=== PATIENT | male | born 1940 | race Caucasian/White ===

== ENCOUNTER 2017-01-16 15:55 | Emergency (ER) | payer OTHER, BC ==
[~2017-01-16] VITALS: Ht 177.8 cm; Wt 81.1 kg
[~2017-01-16 15:55] MED LIST: CARB25TA7 PO; CHOL2000 PO; DONE10TA12 PO; MULT-506 PO; OXYBPOW PO
[2017-01-16] MEDS ORDERED: SIMV-150 PO (15:57)
[2017-01-16] MEDS ORDERED: LEVO125T4 PO (15:57)
[2017-01-16] MEDS ORDERED: OMEP20CA9 PO (15:57)
[2017-01-16] MEDS ORDERED: MELO15TA4 PO (15:57)
[2017-01-16 15:58] VITALS: TEMP 36.4; Ht 177.8 cm; Wt 81.1 kg
[2017-01-16] MEDS ORDERED: ASPI81TA28 PO (16:00)
[2017-01-16] MEDS ORDERED: LUTE20CA PO (16:04)
[2017-01-16 16:05] VITALS: O2SAT 99
[2017-01-16] MEDS ORDERED: SODIUM CHLORIDE 0.9% 500ML 500 ML IV STA (16:12)
--- NOTE | 2017-01-16 16:12 | EMERGENCY ROOM VISIT NOTE ---
History Report prepared by Umm: Turner Robertson Under the Supervision of: Dr. Bladimir Reece M.D. First contact with patient: 16:05 Chief Complaint: ABDOMINAL PAIN Stated Complaint: ABD PAIN / FR [facility] Nursing Triage Summary: Patient arrives via BLS from [facility] with complaints of abdominal pain. Patient has abdominal hernia and he noticed that it has been popping out more often today. The [facility] admin Zofran a littel after lunch due to 1 episode of emesis. Rates pain 9/10. History of Present Illness The patient is a 76 year old male who presents to the Emergency Room with complaints of persistent improving abdominal pain that started today. The pain was rated 9/10 in severity at its worst. The patient also had an episode of vomiting today. He has an inguinal hernia and notes that it has been coming out more frequently. The patient currently denies chest pain or shortness of breath. He does not normally wear oxygen at home. He was given Zofran prior to arrival at the [facility], wear he resides. Source of History: patient Onset: today Position: abdomen Symptom Intensity: 9/10 Timing: other (improving) Associated Symptoms: + nausea, + vomiting, No SOB, No chest pain Review of Systems See HPI for pertinent positives & negatives. A total of 10 systems reviewed and were otherwise negative. Past Medical & Surgical Medical Problems: (1) Heart disease (2) Hyperlipidemia (3) Kidney stone Surgical Problems: (1) History of knee replacement Family History Heart disease Hypertension Kidney disease Kidney stones Social History Smoking Status: Never Smoker Marital Status: Housing Status: lives with family Occupation Status: retired Current/Historical Medications Scheduled Aspirin (Aspirin Ec), 81 MG PO DAILY Carbidopa-Levodopa (Sinemet 25MG/250MG), 1 TAB PO TID Cholecalciferol (Vitamin D3), 1 CAP PO DAILY Donepezil Hydrochloride (Aricept), 1 TAB PO QAM Levothyroxine Sodium (Levothyroxine Sodium), 125 MCG PO DAILY Lutein (Lutein), 20 MG PO DAILY Multivitamin (Multivitamin), 1 TAB PO DAILY Omeprazole (Prilosec), 20 MG PO BID Oxybutynin Chloride (Oxybutynin Chloride ER), 10 MG PO UD Simvastatin (Simvastatin), 20 MG PO HS Scheduled PRN Meloxicam (Mobic), 15 MG PO DAILY PRN for Joint Pain Allergies Coded Allergies: No Known Allergies (Unverified , 03/15/16) Physical Exam Vital Signs Date Time Temp Pulse Resp B/P Pulse Ox O2 Delivery O2 Flow Rate FiO2 01/16/17 19:07 70 18 106/66 97 Room Air 01/16/17 17:07 70 18 113/67 97 Room Air 01/16/17 16:05 99 Nasal Cannula 2.0 01/16/17 16:04 73 01/16/17 15:58 36.4 70 18 112/66 99 Room Air Physical Exam GENERAL: Patient is demented and in no acute distress. HEENT: No acute trauma, normocephalic atraumatic, mucous membranes moist, no nasal congestion, no scleral icterus. NECK: No stridor, no adenopathy, no meningismus, trachea is midline. LUNGS: No dyspnea. Clear to auscultation and equal bilaterally. No wheeze, no rhonchi. HEART: Regular rate and rhythm. No murmurs, rubs, gallops appreciated. ABDOMEN: Soft, nontender, bowel sounds positive, no peritonitis. There is an easily reducible right inguinal hernia which comes and goes. BACK: No midline tenderness, no CVA tenderness EXTREMITIES: Normal motion all extremities, no cyanosis, no edema. NEUROLOGIC: Alert and oriented, no acute motor or sensory deficits, no focal weakness, cranial nerves grossly intact. SKIN: No rash, no jaundice, no diaphoresis. Medical Decision & Procedures ER Provider Diagnostic Interpretation: Radiology results and stated below per my review and radiologist interpretation: CT SCAN OF THE ABDOMEN AND PELVIS WITH IV CONTRAST CLINICAL HISTORY: Right lower quadrant abdominal pain. COMPARISON STUDY: No priors. TECHNIQUE: Following the IV administration of 93 cc of Optiray 320, CT scan of the abdomen and pelvis is performed from the lung bases to the proximal femora. Images are reviewed in the axial, sagittal, and coronal planes. IV contrast was administered without complication. Automated dose control exposure was utilized. CT DOSE: 560.55 mGy.cm FINDINGS: Lung bases: The heart is enlarged and without pericardial effusion. Pacemaker leads are noted. The lung bases are clear. Liver: The contrast-enhanced liver is normal in size, contour, and attenuation. There is no intrahepatic biliary ductal dilatation. The hepatic veins and portal veins are patent. Gallbladder: Unremarkable. Spleen: The spleen is enlarged, measuring 14 cm in length. Pancreas: The pancreas is atrophic and grossly unremarkable a punctate calcification is noted in the pancreatic head. Adrenal glands: Unremarkable. Kidneys: The contrast enhanced kidneys demonstrate cortical atrophy and are without hydronephrosis. The kidneys enhance symmetrically. There are least 4 nonobstructing right renal calculi measuring up to 6 mm. At least 3 small nonobstructing calculi identified in the left kidney. Foci of cortical scarring are noted in the left. Bilateral renal cysts measure up to 2.3 cm. Additional subcentimeter cortical hypodensities also likely represent cysts but are too small for definitive characterization. Abdominal vasculature: The abdominal aorta is normal in course and caliber noting moderate atherosclerotic calcification. Bowel: There is moderate to severe colonic fecal retention. A loop of nonobstructed small bowel is contained within a right inguinal hernia. No bowel obstruction is identified. The appendix is not clearly identified. Peritoneum: There is no intraperitoneal free air or abdominal ascites. Lymphadenopathy: None. Pelvic viscera: Prostate gland is mildly enlarged and heterogeneous. The bladder wall is thickened and trabeculated suggesting chronic outlet obstruction. There are bilateral inguinal hernias. There is trace fluid and a loop of small bowel within the hernia on the right. Skeletal structures: The skeletal structures are osteopenic. There are bilateral pars defects at L5 with grade 1 anterolisthesis at L5-S1. Moderate lumbosacral spondylosis is observed. No lytic or blastic lesions are seen. IMPRESSION: 1. There are no acute infectious or inflammatory findings in the abdomen or pelvis. 2. Moderate to severe constipation. No bowel obstruction is seen. 3. Trace fluid and a loop of nonobstructed small bowel are contained within a right inguinal hernia. 4. Bilateral nonobstructing renal calculi. 5. Prostatomegaly. 6. Cardiomegaly. 7. Splenomegaly. 8. Additional findings as above. Electronically signed by: Jose Luis Zimmerman M.D. 01/16/2017 6:27 PM Dictated Date/Time: 01/16/2017 6:18 PM Laboratory Results 01/16/17 16:30 Red Blood Count 4.42, Mean Corpuscular Volume 82.6, Mean Corpuscular Hemoglobin 28.5, Mean Corpuscular Hemoglobin Concent 34.5, Mean Platelet Volume 9.2, Neutrophils (%) (Auto) 86.7, Lymphocytes (%) (Auto) 5.2, Monocytes (%) (Auto) 7.0, Eosinophils (%) (Auto) 0.3, Basophils (%) (Auto) 0.2, Neutrophils # (Auto) 8.09, Lymphocytes # (Auto) 0.49, Monocytes # (Auto) 0.65, Eosinophils # (Auto) 0.03, Basophils # (Auto) 0.02 01/16/17 16:30 Test 01/16/17 16:30 01/16/17 16:55 01/16/17 18:06 White Blood Count 9.34 K/uL (4.8-10.8) Red Blood Count 4.42 M/uL (4.7-6.1) Hemoglobin 12.6 g/dL (14.0-18.0) Hematocrit 36.5 % (42-52) Mean Corpuscular Volume 82.6 fL (80-100) Mean Corpuscular Hemoglobin 28.5 pg (25-34) Mean Corpuscular Hemoglobin Concent 34.5 g/dl (32-36) Platelet Count 144 K/uL (130-400) Mean Platelet Volume 9.2 fL (7.4-10.4) Neutrophils (%) (Auto) 86.7 % Lymphocytes (%) (Auto) 5.2 % Monocytes (%) (Auto) 7.0 % Eosinophils (%) (Auto) 0.3 % Basophils (%) (Auto) 0.2 % Neutrophils # (Auto) 8.09 K/uL (1.4-6.5) Lymphocytes # (Auto) 0.49 K/uL (1.2-3.4) Monocytes # (Auto) 0.65 K/uL (0.11-0.59) Eosinophils # (Auto) 0.03 K/uL (0-0.5) Basophils # (Auto) 0.02 K/uL (0-0.2) RDW Standard Deviation 40.6 fL (36.4-46.3) RDW Coefficient of Variation 13.4 % (11.5-14.5) Immature Granulocyte % (Auto) 0.6 % Immature Granulocyte # (Auto) 0.06 K/uL (0.00-0.02) Anion Gap 12.0 mmol/L (3-11) Est Creatinine Clear Calc Drug Dose 53.2 ml/min Estimated GFR () 67.2 Estimated GFR (Non- 58.0 BUN/Creatinine Ratio 31.2 (10-20) Calcium Level 9.7 mg/dl (8.5-10.1) Total Bilirubin 0.6 mg/dl (0.2-1) Direct Bilirubin 0.1 mg/dl (0-0.2) Aspartate Amino Transf (AST/SGOT) 25 U/L (15-37) Alanine Aminotransferase (ALT/SGPT) 13 U/L (12-78) Alkaline Phosphatase 105 U/L (45-117) Total Protein 7.3 gm/dl (6.4-8.2) Albumin 3.6 gm/dl (3.4-5.0) Lipase 310 U/L (73-393) Urine Color YELLOW Urine Appearance CLEAR (CLEAR) Urine pH 8.0 (4.5-7.5) Urine Specific [place] 1.017 (1.000-1.030) Urine Protein 2+ (NEG) Urine Glucose (UA) NEG (NEG) Urine Ketones TRACE (NEG) Urine Occult Blood NEG (NEG) Urine Nitrite NEG (NEG) Urine Bilirubin NEG (NEG) Urine Urobilinogen NEG (NEG) Urine Leukocyte Esterase NEG (NEG) Urine WBC (Auto) 1-5 /hpf (0-5) Urine RBC (Auto) 0-4 /hpf (0-4) Urine Hyaline Casts (Auto) 1-5 /lpf (0-5) Urine Epithelial Cells (Auto) 10-20 /lpf (0-5) Urine Bacteria (Auto) NEG (NEG) Bedside Lactic Acid Venous 1.08 mmol/L (0.90-1.70) Laboratory results as reviewed by me. Medications Administered Medications (Trade) Dose Ordered Sig/Alok Route Start Time Stop Time Status Last Admin Dose Admin Sodium Chloride (Nss 500ml) 500 ml @ 999 mls/hr Q31M STAT IV 01/16/17 16:12 01/16/17 16:42 DC 01/16/17 16:12 999 MLS/HR Bisacodyl (Dulcolax Supp) 10 mg NOW STAT IN 01/16/17 18:47 01/16/17 18:48 DC 01/16/17 19:09 10 MG ED Course 1612: NSS 500 ml @ 999 mls/hr. 1615: The patient was evaluated in room B2. A complete history and physical exam was performed. 175: Checked on the patient. He is doing well. 1839: I asked case management to speak with the patient. They will help get him back to the [facility] and set up outpatient general surgery evaluation. 1846: Bisacodyl 10 mg IN. 1899: Reassessed the patient. Discussed the findings with him. He verbalized understanding and agreement. The patient is ready for discharge. Medical Decision Differential: Appendicitis, Diverticulitis, PUD/Gastritis, Biliary Pathology, UTI, Pyelonephritis, Renal Colic, Bowel Obstruction, Aortic Pathology, Acute Coronary Syndrome, amongst other pathologies entertained. 76 yr old male arrives after having abdominal [facility] at [facility] then vomiting. On arrival noted RLQ abdominal pain but apparently moving EMS to bed completely resolved. He has easily reducible hernia right inguinal. No TTP, no swelling, no erythema. Normal exam otherwise. Mild elevation lactic acid though when repeated this is normal. Unclear if just mild dehydration vs vomiting as cause vs tourniquet during blood draw. No evidence of incarcerated bowel at this time. He is not septic appearing and is in no distress over several hours. Multiple repeat abdominal exam nonsurgical. CT abdo/pelv even done which was unremarkable other than hernia. Previously told too dangerous to due hernia repair though would like second opinion thus Case Management in to discuss with then and try to help set up follow-up. Throughout entire stay with no complaints and happy. RTED if worsening. He is somewhat constipated thus will give suppository and if no success may require enema. No distress from this though. Impression Primary Impression: Right inguinal hernia Additional Impressions: Vomiting Dehydration Constipation Scribe Attestation The scribe's documentation has been prepared under my direction and personally reviewed by me in its entirety. I confirm that the note above accurately reflects all work, treatment, procedures, and medical decision making performed by me. Departure Information Dispostion Home / Self-Care Referrals Cody Reich D.O. (PCP) Forms HOME CARE DOCUMENTATION FORM, IMPORTANT VISIT INFORMATION Patient Instructions [facility] Additional Instructions You will follow up with General Surgeon for further evaluation of your hernia. If you have severe worsening of pain, fevers, or vomiting return for further evaluation. If constipation isn't improving you will need to discuss having an Enema. Problem Qualifiers Additional Impressions: Vomiting Vomiting type: unspecified Vomiting Intractability: non-intractable Nausea presence: unspecified Qualified Codes: R11.10 - Vomiting, unspecified Constipation Constipation type: unspecified constipation type Qualified Codes: K59.00 - Constipation, unspecified
[2017-01-16] MEDS ORDERED: OPTIRAY 320 IV PRN (16:15)
[2017-01-16] MEDS ORDERED: DTRSR/10 PO (16:21)
[2017-01-16 16:47] LABS: BASO % 0.2 %; BASO ABS # 0.02 K/uL (0-0.2); COMPLETE YES; EOS % 0.3 %; HEMATOCRIT 36.5 % (42-52); IG% 0.6 %; LYMPH % 5.2 %; LYMPH ABS # 0.49 K/uL (1.2-3.4); MEAN CELL VOLUME 82.6 fL (80-100); MEAN CORPUSCULAR HEMOGLOBIN 28.5 pg (25-34); MEAN CORPUSCULAR HGB CONC 34.5 g/dl (32-36); MEAN PLATELET VOLUME 9.2 fL (7.4-10.4); NEUT % 86.7 %; PLATELET COUNT 144 K/uL (130-400); RED BLOOD COUNT 4.42 M/uL (4.7-6.1); WHITE BLOOD COUNT 9.34 K/uL (4.8-10.8)
[2017-01-16 17:05] LABS: BUN/CREATININE RATIO 31.2 (10-20); CALCIUM 9.7 mg/dl (8.5-10.1); CREATININE 1.2 mg/dl (0.60-1.40); POTASSIUM 3.7 mmol/L (3.5-5.1)
[2017-01-16 17:27] LABS: URINE APPEARANCE CLEAR (CLEAR); URINE BILIRUBIN NEG (NEG); URINE COLOR YELLOW; URINE NITRITE NEG (NEG); URINE SPECIFIC GRAVITY 1.017 (1.000-1.030); UROBILINOGEN NEG (NEG); ZZUR CULT IF INDIC CLEAN CATCH NO
[2017-01-16 17:32] LABS: MANUAL MICROSCOPIC REQUIRED? NO; REVIEW REQ? NO
[2017-01-16 17:36] LABS: SULFASALICYLIC ACID POS (NEG)
--- NOTE | 2017-01-16 18:28 | DIAGNOSTIC IMAGING REPORT ---
CT SCAN OF THE ABDOMEN AND PELVIS WITH IV CONTRAST CLINICAL HISTORY: Right lower quadrant abdominal pain. COMPARISON STUDY: No priors. TECHNIQUE: Following the IV administration of 93 cc of Optiray 320, CT scan of the abdomen and pelvis is performed from the lung bases to the proximal femora. Images are reviewed in the axial, sagittal, and coronal planes. IV contrast was administered without complication. Automated dose control exposure was utilized. CT DOSE: 560.55 mGy.cm FINDINGS: Lung bases: The heart is enlarged and without pericardial effusion. Pacemaker leads are noted. The lung bases are clear. Liver: The contrast-enhanced liver is normal in size, contour, and attenuation. There is no intrahepatic biliary ductal dilatation. The hepatic veins and portal veins are patent. Gallbladder: Unremarkable. Spleen: The spleen is enlarged, measuring 14 cm in length. Pancreas: The pancreas is atrophic and grossly unremarkable a punctate calcification is noted in the pancreatic head. Adrenal glands: Unremarkable. Kidneys: The contrast enhanced kidneys demonstrate cortical atrophy and are without hydronephrosis. The kidneys enhance symmetrically. There are least 4 nonobstructing right renal calculi measuring up to 6 mm. At least 3 small nonobstructing calculi identified in the left kidney. Foci of cortical scarring are noted in the left. Bilateral renal cysts measure up to 2.3 cm. Additional subcentimeter cortical hypodensities also likely represent cysts but are too small for definitive characterization. Abdominal vasculature: The abdominal aorta is normal in course and caliber noting moderate atherosclerotic calcification. Bowel: There is moderate to severe colonic fecal retention. A loop of nonobstructed small bowel is contained within a right inguinal hernia. No bowel obstruction is identified. The appendix is not clearly identified. Peritoneum: There is no intraperitoneal free air or abdominal ascites. Lymphadenopathy: None. Pelvic viscera: Prostate gland is mildly enlarged and heterogeneous. The bladder wall is thickened and trabeculated suggesting chronic outlet obstruction. There are bilateral inguinal hernias. There is trace fluid and a loop of small bowel within the hernia on the right. Skeletal structures: The skeletal structures are osteopenic. There are bilateral pars defects at L5 with grade 1 anterolisthesis at L5-S1. Moderate lumbosacral spondylosis is observed. No lytic or blastic lesions are seen. IMPRESSION: 1. There are no acute infectious or inflammatory findings in the abdomen or pelvis. 2. Moderate to severe constipation. No bowel obstruction is seen. 3. Trace fluid and a loop of nonobstructed small bowel are contained within a right inguinal hernia. 4. Bilateral nonobstructing renal calculi. 5. Prostatomegaly. 6. Cardiomegaly. 7. Splenomegaly. 8. Additional findings as above. Electronically signed by: Jose Luis Zimmerman M.D. 01/16/2017 6:27 PM Dictated Date/Time: 01/16/2017 6:18 PM
[2017-01-16] MEDS ORDERED: BISACODYL 10 MG SUPP PR STA (18:47)
[2017-01-16 19:07] VITALS: BP 106/66; PULSE 70; O2SAT 97
[2017-01-22] MEDS ORDERED: MULTCAP31 PO (15:41)
[2017-01-22] MEDS ORDERED: CARB25TA PO (15:41)
[2017-01-22] MEDS ORDERED: POLY335019 PO (15:42)
[2017-01-22] MEDS ORDERED: TYLER650 PO (15:42)
[2017-01-22] MEDS ORDERED: ACET-1311 PO (15:42)
[2017-01-22] MEDS ORDERED: ONDA4TAB46 PO (15:44)
[2017-01-22] MEDS ORDERED: SENN-65 PO (15:44)
[2017-01-22] MEDS ORDERED: TYLOTC500 PO (15:45)
[2017-01-22] MEDS ORDERED: DOCU-94 PO (15:47)
== END 2017-01-16 19:20 | disposition home or self-care (01) ==
LOC: EDBD 15:55 → C.EDB 15:56
DX: K40.90 Unilateral inguinal hernia, without obstruction or gangrene, not specified as recurrent (principal); R11.10 Vomiting, unspecified; E86.0 Dehydration; K59.00 Constipation, unspecified; I51.9 Heart disease, unspecified; E78.5 Hyperlipidemia, unspecified; Z87.442 Personal history of urinary calculi; Z96.659 Presence of unspecified artificial knee joint; Z82.49 Family history of ischemic heart disease and other diseases of the circulatory system; Z84.1 Family history of disorders of kidney and ureter; Z79.82 Long term (current) use of aspirin; Z79.899 Other long term (current) drug therapy

== ENCOUNTER 2017-02-06 07:55 | Day surgery (SDC) | payer OTHER, BC ==
[2017-01-22 14:56] VITALS: BMI 26.0
--- NOTE | 2017-01-22 16:23 | PAT Medication Instructions ---
Service Date Jan 22, 2017. Current Home Medication List Acetaminophen (Tylenol), 650 MG PO QPM Acetaminophen (Tylenol), 650 MG PO Q4 Aspirin (Aspirin Ec), 81 MG PO HS Carbidopa-Levodopa (Sinemet Cr 25MG/100MG), 1 TAB PO TID Cholecalciferol (Vitamin D3), 1 CAP PO QAM Docusate Sodium (Colace), 1 CAP PO QPM Donepezil Hydrochloride (Aricept), 1 TAB PO NOON Levothyroxine Sodium (Levothyroxine Sodium), 125 MCG PO QAM Meloxicam (Mobic), 15 MG PO QAM Multiple Vitamins W/ Minerals (Ocuvite Lutein), 1 CAP PO QAM Multivitamin (Multivitamin), 1 TAB PO QPM Omeprazole (Prilosec), 20 MG PO BID Ondansetron Hcl (Zofran), 4 MG PO PRN PRN for NAUSEA Oxybutynin Chloride (Oxybutynin Chloride ER), 10 MG PO QAM Polyethylene Glycol 3350 (Miralax), 17 GM PO QAM Senna/Docusate Sod (Senokot S), 1 TAB PO BID Simvastatin (Simvastatin), 20 MG PO HS Medication Instructions For Your Scheduled Surgery - Per surgeon's instructions: Aspirin (Aspirin Ec), 81 MG PO HS Meloxicam (Mobic), 15 MG PO QAM - Hold the following medications the morning of surgery: Cholecalciferol (Vitamin D3), 1 CAP PO QAM Multiple Vitamins W/ Minerals (Ocuvite Lutein), 1 CAP PO QAM Senna/Docusate Sod (Senokot S), 1 TAB PO BID Polyethylene Glycol 3350 (Miralax), 17 GM PO QAM - Take the following medications the morning of surgery with a sip of water OTHERWISE NOTHING TO EAT OR DRINK AFTER MIDNIGHT: Acetaminophen (Tylenol), 650 MG PO Q4 (may take if needed up to 4 hours prior to surgery) Donepezil Hydrochloride (Aricept), 1 TAB PO NOON (time permitting; pt will likely be arriving to the hospital before noon, however, if surgery time is not until later in the day he may take this at usual time) Omeprazole (Prilosec), 20 MG PO BID Carbidopa-Levodopa (Sinemet Cr 25MG/100MG), 1 TAB PO TID Levothyroxine Sodium (Levothyroxine Sodium), 125 MCG PO QAM Ondansetron Hcl (Zofran), 4 MG PO PRN PRN for NAUSEA Oxybutynin Chloride (Oxybutynin Chloride ER), 10 MG PO QAM - Take the following medications as scheduled the night before surgery: Acetaminophen (Tylenol), 650 MG PO QPM Docusate Sodium (Colace), 1 CAP PO QPM Multivitamin (Multivitamin), 1 TAB PO QPM Simvastatin (Simvastatin), 20 MG PO HS Omeprazole (Prilosec), 20 MG PO BID Carbidopa-Levodopa (Sinemet Cr 25MG/100MG), 1 TAB PO TID Senna/Docusate Sod (Senokot S), 1 TAB PO BID Ondansetron Hcl (Zofran), 4 MG PO PRN PRN for NAUSEA If you have any questions please call us at [phone] or [phone] or [phone]
[~2017-02-06] VITALS: Ht 170.2 cm; Wt 77.3 kg
[~2017-02-06 07:55] MED LIST changes: +ACET-1311 PO; +ASPI81TA28 PO; +CARB25TA PO; -CARB25TA7 PO; +CEFAZOLIN 2000 MG/60 ML D5W IV SCH; +DOCU-94 PO; +DTRSR/10 PO; +HEPARIN SOD 5000 UNIT/0.5 ML CARP SQ SCH; +LACTATED RINGER'S 1000ML 1,000 ML IV SCH; +LEVO125T5 PO; +MELO15TA4 PO; +MULTCAP31 PO; +OMEP20CA9 PO; +ONDA4TAB46 PO; -OXYBPOW PO; +POLY335019 PO; +SENN-65 PO; +SIMV-150 PO; +TYLOTC500 PO
[2017-02-06 08:35] VITALS: BP 123/70; PULSE 72; TEMP 36.4; O2SAT 99; Ht 170.2 cm; Wt 77.3 kg
[2017-02-06] MEDS ORDERED: EpHEDrine SULFATE INJ 50 MG/ML AMP IV PRN (09:45)
[2017-02-06] MEDS ORDERED: HYDROmorphone INJ 2 MG/ML SYR/VIAL IV PRN (09:45)
[2017-02-06] MEDS ORDERED: FLUMAZENIL 0.1 MG/1 ML 10 ML VIAL IV PRN (09:45)
[2017-02-06] MEDS ORDERED: ATROPINE SULFATE 0.1 MG/ML 5ML SYR IV PRN (09:45)
[2017-02-06] MEDS ORDERED: LABETALOL HCL IV 5 MG/ML 20ML IV PRN (09:45)
[2017-02-06] MEDS ORDERED: MEPERIDINE HCL 25 MG/ML CARP IV PRN (09:45)
[2017-02-06] MEDS ORDERED: PHENYLEPHRINE 100MCG/ML 5ML SYR IV PRN (09:45)
[2017-02-06] MEDS ORDERED: NALOXONE HCL 0.4 MG/1 ML VIAL/CARP IV PRN (09:45)
[2017-02-06] MEDS ORDERED: ONDANSETRON INJ 2 MG/ML 2 ML VIAL IV PRN ×2 (09:45→13:45)
[2017-02-06] MEDS ORDERED: ONDANSETRON INJ 2 MG/ML 2 ML VIAL ONE (11:18)
[2017-02-06] MEDS ORDERED: FENTANYL CITRATE INJ 50 MCG/1 ML 2 ML VIAL ONE ×2 (11:18)
[2017-02-06] MEDS ORDERED: DEXAMETHASONE SOD INJ 4 MG/ML VIAL ONE ×2 (11:18→13:28)
[2017-02-06] MEDS ORDERED: PROPOFOL IV EMULSION 10 MG/ML 20 ML VIAL IV ONE (11:18)
[2017-02-06] MEDS ORDERED: LIDOCAINE HCL 2% 2 ML VIAL (20MG/ML) ONE (11:18)
--- NOTE | 2017-02-06 11:50 | History & Physical Bridge Note ---
H&P Re-Evaluation Bridge Note: I have examined the patient, reviewed the History & Physical and in the interval since the performance of the History & Physical I have noted the following changes of clinical significance: No changes noted
[2017-02-06] MEDS ORDERED: BUPIVACAINE/EPINEPHRINE 0.5% MPF 1:200,000 30 ML VIAL ONE (12:11)
[2017-02-06] MEDS ORDERED: HYDR-5688 PO (12:18)
--- NOTE | 2017-02-06 12:27 | Discharge Instructions ---
Discharge Instructions Date of Service Feb 06, 2017. Admission Reason for Admission: Right Inguinal Hernia Discharge Discharge Diagnosis / Problem: Right Inguinal Hernia Discharge Goals Goal(s): Decrease discomfort, Improve function Activity Recommendations Activity Limitations: as noted below Lifting Limitations: no more than 10 pounds Exercise/Sports Limitations: until after follow-up appointment May Resume Sexual Activity: after follow-up appointment Shower/Bathe: tomorrow . Instructions / Follow-Up Instructions / Follow-Up Please follow-up with Dr. Morley in the office in 1-2 weeks. Any questions or concerns please call [phone]. Current Hospital Diet Patient's current hospital diet: Discharge Diet Recommended Diet: Regular Diet Pending Studies Studies pending at discharge: no Medical Emergencies . Who to Call and When: Medical Emergencies: If at any time you feel your situation is an emergency, please call 911 immediately. . Non-Emergent Contact Non-Emergency issues call your: Primary Care Provider, Surgeon Call Non-Emergent contact if: temperature is above 101.5, your pain is not controlled, wound has increased drainage, wound has increased redness . "Provider Documentation" section prepared by Caitlyn Nguyen. VTE Core Measure Inpt VTE Proph given/why not?: Unfractionated heparin SQ, SCD's
[2017-02-06] MEDS ORDERED: LACTATED RINGER'S 1000ML 1,000 ML IV SCH (13:37)
[2017-02-06] MEDS ORDERED: MoRPHine SULFATE 2 MG/ML CARP IV PRN (13:45)
[2017-02-06] MEDS ORDERED: HYDROCODONE/ACETAMOPHEN 5/325MG TAB PO PRN (13:45)
[2017-02-06] MEDS: FENTANYL CITRATE INJ 50 MCG/1 ML 2 ML VIAL IV PRN ×3 (13:50→14:05)
--- NOTE | 2017-02-06 13:55 | [facility] Operative Report ---
Operative Report Operative Date Feb 06, 2017. Pre-Operative Diagnosis Right inguinal hernia Post-Operative Diagnosis large indirect right inguinal hernia with small bowel incarceration Procedure(s) Performed open RIH repair with mesh Surgeon Dr. Morley Communications Clerk Surgeon(s) Caitlyn Nguyen PA-C and Ion Krishna PA-C Estimated Blood Loss 20mL Findings large right inguinal hernia with small bowel incarceration;indirect Specimens none per surgeon Complication(s) None Disposition Recovery Room / PACU I attest to the content of the Intraoperative Record and any orders documented therein. Any exceptions are noted below.
--- NOTE | 2017-02-06 14:12 | Anesthesiology Progress Note ---
Anesthesia Post Op Note Date & Time Feb 06, 2017 at 14:11 Vital Signs Pain Intensity: 4.0 Vital Signs Past 12 Hours Date Time Temp Pulse Resp B/P Pulse Ox O2 Delivery O2 Flow Rate FiO2 02/06/17 14:05 72 20 100/70 99 Room Air 02/06/17 14:00 73 18 125/70 100 Mask 10 02/06/17 13:50 71 23 128/68 100 Mask 10 02/06/17 13:40 36.0 70 16 125/82 100 Mask 10 02/06/17 08:35 36.4 72 20 123/70 99 Room Air Notes Mental Status: alert / awake / arousable, participated in evaluation Pt Amnestic to Procedure: Yes Nausea / Vomiting: adequately controlled Pain: adequately controlled Airway Patency, RR, SpO2: stable & adequate BP & HR: stable & adequate Hydration State: stable & adequate Anesthetic Complications: no major complications apparent
[2017-02-06 14:30] VITALS: BP_SYST 118; BP_SYST 123; BP_DIAS 66; PULSE 73; TEMP 36.3; O2SAT 98
[2017-02-06 15:00] VITALS: BP 118/66; PULSE 70; TEMP 36.3; O2SAT 98
[2017-02-06 15:30] VITALS: BP 112/61; PULSE 70; TEMP 36.3; O2SAT 99
--- NOTE | 2017-02-06 23:45 | OPERATIVE REPORT ---
DATE OF OPERATION: 02/06/2017 PREOPERATIVE DIAGNOSIS: Right inguinal hernia with incarceration. POSTOPERATIVE DIAGNOSIS: Large indirect right inguinal hernia with small bowel incarceration. PROCEDURE: Open right inguinal hernia repair with mesh. SURGEON: Dr. Shree Morley. PLASTIC WELDING MACHINE OPERATOR: Ion Tong PA-C and Caitlyn Nguyen PA-C. ESTIMATED BLOOD LOSS: Approximately 15 mL. COMPLICATIONS: No immediate. ANESTHESIA: General with a laryngeal mask airway. OPERATIVE NOTE: After informed consent was obtained, the patient was taken to the operating suite and placed in the supine position. After successful placement of laryngeal mask airway, the right groin was shaved and sterilely prepped and draped in the usual fashion. An inguinal incision was made with 10 blade scalpel and carried down through the soft tissue using electrocautery. The external oblique aponeurosis was skeletonized and opened with a fresh blade. It was extended distally through the external ring with Metzenbaum scissors as well as for several centimeters proximally. Once in the inguinal canal, there was an obvious very large indirect inguinal hernia. We tediously took down cremasteric muscles using small amounts of electrocautery and blunt dissection. We did encounter a large chronic sac, it was difficult to pull out of the scrotum. We therefore opened the sac to inspect its contents. It was filled with probably a foot or more of small intestine. It did not look ischemic or obstructed. We were able to quite readily then reduce the small bowel back down into the abdominal cavity. Once we did this, we then were able to free up the distal end of the hernia sac using primarily blunt dissection. I then closed the sac using 2-0 Vicryl in a running fashion. We then dunked the sac back down into the abdominal cavity without difficulty. There was no evidence of a direct defect. We used a large piece of polypropylene keyhole mesh as an onlay. It was secured distally to Micah ligament, laterally along the shelving portion of Poupart ligament and medially along the midline musculature. The "arms" of the mesh were wrapped around behind the cord and cord structures and secured to underlying muscle. We secured all the mesh using 0 Ethibond. Thorough irrigation was performed. The mesh did not seem to impinge too tightly on the cord and cord structures. There was adequate hemostasis. We did a final irrigation and injected around the edges of the mesh with Marcaine for postoperative analgesia. We then closed the external oblique aponeurosis with 2-0 Vicryl in a running fashion. Soft tissue was irrigated. SubQ tissue was closed using 3-0 Vicryl and skin closed using 4-0 Monocryl. Some additional Marcaine was injected around the skin and Dermabond glue used as a dressing. The patient was awakened, extubated, and transferred to recovery in stable condition. I attest to the content of the Intraoperative Record and any orders documented therein. Any exceptio ns are noted below.
== END 2017-02-06 16:30 | disposition home or self-care (01) ==
LOC: C.ACU 07:55
PROVIDERS: ATTEND Surgery
DX: K40.30 Unilateral inguinal hernia, with obstruction, without gangrene, not specified as recurrent (principal); Z79.82 Long term (current) use of aspirin; Z79.899 Other long term (current) drug therapy

== ENCOUNTER → 2017-05-15 | Outpatient (CLI) | payer OTHER, BC ==
[~2017-05-15] MED LIST changes: -ACET-1311 PO; -CEFAZOLIN 2000 MG/60 ML D5W IV SCH; -HEPARIN SOD 5000 UNIT/0.5 ML CARP SQ SCH; -LACTATED RINGER'S 1000ML 1,000 ML IV SCH; +LEVO125T4 PO; -LEVO125T5 PO; -TYLOTC500 PO
[2017-05-15 10:23] LABS: BLOOD UREA NITROGEN 47 mg/dl (7-18); BUN/CREATININE RATIO 33.6 (10-20); CALCIUM 9.4 mg/dl (8.5-10.1); CARBON DIOXIDE 27 mmol/L (21-32); CHLORIDE 107 mmol/L (98-107); GLUCOSE 94 mg/dl (70-99); POTASSIUM 4.1 mmol/L (3.5-5.1); SODIUM 140 mmol/L (136-145)
== END | disposition home or self-care (01) ==
LOC: C.LABVPSUA 09:52
PROVIDERS: ATTEND Internal Medicine Critical Care Medicine
DX: R60.9 Edema, unspecified (principal)

== ENCOUNTER → 2017-06-10 | Outpatient (CLI) | payer OTHER, BC ==
[2017-06-10 10:40] LABS: BLOOD UREA NITROGEN 37 mg/dl (7-18); BUN/CREATININE RATIO 26.6 (10-20); CALCIUM 9.5 mg/dl (8.5-10.1); CARBON DIOXIDE 28 mmol/L (21-32); CHLORIDE 104 mmol/L (98-107); GLUCOSE 109 mg/dl (70-99); POTASSIUM 3.7 mmol/L (3.5-5.1); SODIUM 138 mmol/L (136-145)
== END ==
LOC: C.LABVPSUA 10:15
PROVIDERS: ATTEND Internal Medicine Critical Care Medicine
DX: I11.9 Hypertensive heart disease without heart failure (principal)

== ENCOUNTER → 2017-07-23 | Outpatient (CLI) | payer OTHER, BC | END | disposition home or self-care (01) | LOC: C.LABVPSUA 09:29 | PROVIDERS: ATTEND Internal Medicine Critical Care Medicine | DX: E03.9 Hypothyroidism, unspecified (principal) ==

== ENCOUNTER → 2017-10-17 | Outpatient (CLI) | payer OTHER, BC ==
[~2017-10-17] MED LIST changes: -LEVO125T4 PO; +LEVO125T5 PO
[2017-10-17 16:09] LABS: MANUAL MICROSCOPIC REQUIRED? YES; URINE APPEARANCE TURBID (CLEAR); URINE BILIRUBIN NEG (NEG); URINE COLOR RED; URINE NITRITE NEG (NEG); URINE PH 5.5 (4.5-7.5); URINE SPECIFIC GRAVITY 1.025 (1.000-1.030); UROBILINOGEN NEG (NEG)
[2017-10-17 16:13] LABS: REVIEW REQ? NO
[2017-10-17 16:15] LABS: URINE BACTERIA NEG (NEG); URINE RBC >30 /hpf (0-4); URINE WBC 0 /hpf (0-5)
== END | disposition home or self-care (01) ==
LOC: C.LABVPSUA 15:20
PROVIDERS: ATTEND Internal Medicine Critical Care Medicine
DX: R35.0 Frequency of micturition (principal); R31.9 Hematuria, unspecified

== ENCOUNTER → 2017-10-21 | Outpatient (CLI) | payer OTHER, BC ==
[2017-10-21 10:05] LABS: BASO % 1.3 %; BASO ABS # 0.07 K/uL (0-0.2); COMPLETE YES; EOS % 3.4 %; HEMATOCRIT 35.6 % (42-52); IG% 0.6 %; LYMPH % 20.9 %; LYMPH ABS # 1.09 K/uL (1.2-3.4); MEAN CELL VOLUME 85.2 fL (80-100); MEAN CORPUSCULAR HGB CONC 32.9 g/dl (32-36); MEAN PLATELET VOLUME 10.1 fL (7.4-10.4); MONO % 6.9 %; NEUT % 66.9 %; PLATELET COUNT 178 K/uL (130-400); RED BLOOD COUNT 4.18 M/uL (4.7-6.1); WHITE BLOOD COUNT 5.22 K/uL (4.8-10.8)
[2017-10-21 10:11] LABS: BLOOD UREA NITROGEN 32 mg/dl (7-18); BUN/CREATININE RATIO 21.3 (10-20); CALCIUM 9.1 mg/dl (8.5-10.1); CARBON DIOXIDE 27 mmol/L (21-32); CHLORIDE 103 mmol/L (98-107); CREATININE 1.48 mg/dl (0.60-1.40); GLUCOSE 96 mg/dl (70-99); POTASSIUM 3.6 mmol/L (3.5-5.1); SODIUM 138 mmol/L (136-145)
== END | disposition home or self-care (01) ==
LOC: C.LABVPSUA 09:31
PROVIDERS: ATTEND Internal Medicine Critical Care Medicine
DX: I10 Essential (primary) hypertension (principal); R31.9 Hematuria, unspecified

== ENCOUNTER → 2017-11-18 | Outpatient (CLI) | payer OTHER, BC | END | disposition home or self-care (01) | LOC: C.LABVPSUA 09:15 | PROVIDERS: ATTEND Internal Medicine Critical Care Medicine | DX: G62.9 Polyneuropathy, unspecified (principal) ==

== ENCOUNTER → 2017-12-09 | Outpatient (CLI) | payer OTHER, BC ==
[~2017-12-09] MED LIST changes: +MELO-84 PO; -MELO15TA4 PO
[2017-12-09 09:07] LABS: BLOOD UREA NITROGEN 35 mg/dl (7-18); CALCIUM 9.5 mg/dl (8.5-10.1); CARBON DIOXIDE 30 mmol/L (21-32); CREATININE 1.17 mg/dl (0.60-1.40); GLUCOSE 91 mg/dl (70-99); POTASSIUM 3.6 mmol/L (3.5-5.1); SODIUM 140 mmol/L (136-145)
== END ==
LOC: C.LABVPSUA 08:45
PROVIDERS: ATTEND Internal Medicine Critical Care Medicine
DX: I10 Essential (primary) hypertension (principal)

== ENCOUNTER → 2018-01-07 | Outpatient (CLI) | payer OTHER, BC ==
[2018-01-07 10:02] LABS: BASO % 0.6 %; BASO ABS # 0.04 K/uL (0-0.2); EOS ABS # 0.31 K/uL (0-0.5); HEMATOCRIT 37.6 % (42-52); HEMOGLOBIN 12.2 g/dL (14.0-18.0); IG# 0.04 K/uL (0.00-0.02); LYMPH % 23.8 %; LYMPH ABS # 1.47 K/uL (1.2-3.4); MEAN CELL VOLUME 83.6 fL (80-100); MEAN CORPUSCULAR HEMOGLOBIN 27.1 pg (25-34); MEAN CORPUSCULAR HGB CONC 32.4 g/dl (32-36); MONO % 10.5 %; MONO ABS # 0.65 K/uL (0.11-0.59); NEUT % 59.5 %; NEUT ABS # 3.66 K/uL (1.4-6.5); PLATELET COUNT 226 K/uL (130-400); RED CELL DISTRIBUTION WIDTH CV 13.9 % (11.5-14.5); RED CELL DISTRIBUTION WIDTH SD 42.3 fL (36.4-46.3); WHITE BLOOD COUNT 6.17 K/uL (4.8-10.8)
[2018-01-07 10:27] LABS: BLOOD UREA NITROGEN 24 mg/dl (7-18); CALCIUM 9.1 mg/dl (8.5-10.1); CARBON DIOXIDE 28 mmol/L (21-32); CREATININE 1.16 mg/dl (0.60-1.40); GLUCOSE 96 mg/dl (70-99); POTASSIUM 3.5 mmol/L (3.5-5.1); SODIUM 136 mmol/L (136-145)
== END ==
LOC: C.LABVPSUA 09:37
PROVIDERS: ATTEND Internal Medicine Critical Care Medicine
DX: R41.82 Altered mental status, unspecified (principal)

== ENCOUNTER 2018-01-27 12:56 | Inpatient (IN) | payer OTHER, BC ==
[~2018-01-27] VITALS: Ht 170.2 cm; Wt 87.9 kg
[~2018-01-27 12:56] MED LIST changes: -DONE5TAB14 PO; -FURO40TA3 PO; +MAGNESIUM CITRATE 296 ML/BTL PO ONE; -OMEP20TA PO; -POTA10TA PO; -THIA100T11 PO
[2018-01-27] MEDS ORDERED: FAMOTIDINE 20MG/5ML IV PUSH IV STA (13:06)
[2018-01-27] MEDS ORDERED: PANTOprazole INJ 40 MG in SYRINGE 0 ML IV ONE (13:15)
[2018-01-27 13:26] LABS: BASO % 0.5 %; BASO ABS # 0.04 K/uL (0-0.2); EOS % 3.6 %; HEMATOCRIT 30.1 % (42-52); IG# 0.08 K/uL (0.00-0.02); LYMPH % 19.4 %; LYMPH ABS # 1.61 K/uL (1.2-3.4); MEAN CELL VOLUME 83.6 fL (80-100); MEAN CORPUSCULAR HEMOGLOBIN 27.8 pg (25-34); MEAN CORPUSCULAR HGB CONC 33.2 g/dl (32-36); MEAN PLATELET VOLUME 8.8 fL (7.4-10.4); MONO ABS # 0.83 K/uL (0.11-0.59); NEUT % 65.5 %; NEUT ABS # 5.46 K/uL (1.4-6.5); PLATELET COUNT 244 K/uL (130-400); RED CELL DISTRIBUTION WIDTH CV 14.3 % (11.5-14.5); RED CELL DISTRIBUTION WIDTH SD 43.3 fL (36.4-46.3); WHITE BLOOD COUNT 8.32 K/uL (4.8-10.8)
[2018-01-27 13:37] LABS: PTT PATIENT 25.8 SECONDS (21.0-31.0)
[2018-01-27 13:40] LABS: ALBUMIN 3.5 gm/dl (3.4-5.0); ALT/SGPT 18 U/L (12-78); AST/SGOT 22 U/L (15-37); BLOOD UREA NITROGEN 25 mg/dl (7-18); CALCIUM 9.1 mg/dl (8.5-10.1); CARBON DIOXIDE 29 mmol/L (21-32); CREATININE 1.15 mg/dl (0.60-1.40); GLUCOSE 94 mg/dl (70-99); SODIUM 137 mmol/L (136-145)
--- NOTE | 2018-01-27 13:40 | DIAGNOSTIC IMAGING REPORT ---
CHEST ONE VIEW PORTABLE CLINICAL HISTORY: Respiratory distress COMPARISON STUDY: No previous studies for comparison. FINDINGS: The heart is enlarged. There is aortic tortuosity/ectasia. There is a left subclavian dual-chamber central venous pacemaker. There is no failure. There is no focal pulmonary consolidation. There are no pleural effusions. Arthritic changes are present within the shoulders.[ IMPRESSION: No active disease in the chest. Electronically signed by: Sandoval Finney M.D. 01/27/2018 1:39 PM Dictated Date/Time: 01/27/2018 1:38 PM
[2018-01-27 13:44] LABS: ALKALINE PHOSPHATASE 87 U/L (45-117); CKMB 1.1 ng/ml (0.5-3.6)
--- NOTE | 2018-01-27 13:48 | EMERGENCY ROOM VISIT NOTE ---
History Report prepared by Umm: Kiran Chowdary Under the Supervision of: Dr. Mau Swift D.O. First contact with patient: 13:03 Stated Complaint: GI ASSESSMENT History of Present Illness The patient is a 77 year old male who presents to the Emergency Room with complaints of rectal bleeding. He is a resident at [facility]. The patient was found to have "dark, tarry stools" recently. He was noted to have had a drop in his hemoglobin from 12 to 10. He also complains of LLQ abdominal pain. The patient has a history of similar abdominal pain. Per nursing staff, the patient has a history of Parkinson's/dementia and has some baseline confusion, but is reported to appear more confused than normal. HPI limited secondary to altered mental status. Source of History: patient, nursing staff History Limited By: AMS Position: other (rectal) Quality: other (bleeding) Associated Symptoms: + abdominal pain (LLQ), + melena Review of Systems ROS limited secondary to altered mental status. Past Medical & Surgical Medical Problems: (1) Gastrointestinal hemorrhage with melena (2) Heart disease (3) Hyperlipidemia (4) Kidney stone Surgical Problems: (1) History of knee replacement Family History Heart disease Hypertension Kidney disease Kidney stones Social History Smoking Status: Never Smoker Marital Status: Housing Status: lives with family Occupation Status: retired Current/Historical Medications Scheduled Aspirin (Aspirin Ec), 81 MG PO HS Cholecalciferol (Vitamin D3), 1 CAP PO QAM Docusate Sodium (Colace), 1 CAP PO QPM Donepezil Hydrochloride (Aricept), 5 MG PO DAILY Furosemide (Lasix), 40 MG PO DAILY Levothyroxine Sodium (Levothyroxine Sodium), 125 MCG PO QAM Multiple Vitamins W/ Minerals (Ocuvite Lutein), 1 CAP PO QAM Multivitamin (Multivitamin), 1 TAB PO QPM Polyethylene Glycol 3350 (Miralax), 17 GM PO QAM Potassium Chloride (K-Tabs), 10 MEQ PO DAILY Senna/Docusate Sod (Senokot S), 1 TAB PO BID Thiamine Hcl (Vitamin B-1), 100 MG PO DAILY Allergies Coded Allergies: No Known Allergies (Unverified , 02/06/17) Physical Exam Vital Signs Date Time Temp Pulse Resp B/P (MAP) Pulse Ox O2 Delivery O2 Flow Rate FiO2 01/27/18 14:32 84 20 118/75 98 Room Air 01/27/18 13:17 36.8 73 18 143/65 98 Room Air 01/27/18 13:11 94 Room Air 01/27/18 13:06 87 Physical Exam GENERAL: Patient is awake, alert, non-anxious appearing and comfortable. EYES: The conjunctivae are clear. The pupils are round and reactive. EARS, NOSE, MOUTH AND THROAT: The nose is without any evidence of any deformity. Mucous membranes are moist tongue is midline NECK: The neck is nontender and supple. RESPIRATORY: Normal respiratory effort is noted there is no evidence of wheezing rhonchi or rales CARDIOVASCULAR: Regular rate and rhythm noted there no murmurs rubs or gallops normal S1 normal S2 GASTROINTESTINAL: The abdomen is soft. Bowel sounds are present in all quadrants. Abdomen is nontender RECTAL: Black stool. Strongly heme positive. MUSCULOSKELETAL/EXTREMITIES: There is no evidence of gross deformity full range of motion is noted in the hips and shoulders SKIN: There is no obvious evidence of any rash. There are no petechiae, pallor or cyanosis noted. Pedal edema bilaterally. NEUROLOGIC: Oriented to person and place, but not time or situation. Follows commands. Medical Decision & Procedures ER Provider Diagnostic Interpretation: Radiology results as stated below per my review and radiologist interpretation: CHEST ONE VIEW PORTABLE FINDINGS: The heart is enlarged. There is aortic tortuosity/ectasia. There is a left subclavian dual-chamber central venous pacemaker. There is no failure. There is no focal pulmonary consolidation. There are no pleural effusions. Arthritic changes are present within the shoulders.[ IMPRESSION: No active disease in the chest. Electronically signed by: Sandoval Finney M.D. 01/27/2018 1:39 PM Laboratory Results 01/27/18 13:08 Red Blood Count 3.60, Mean Corpuscular Volume 83.6, Mean Corpuscular Hemoglobin 27.8, Mean Corpuscular Hemoglobin Concent 33.2, Mean Platelet Volume 8.8, Neutrophils (%) (Auto) 65.5, Lymphocytes (%) (Auto) 19.4, Monocytes (%) (Auto) 10.0, Eosinophils (%) (Auto) 3.6, Basophils (%) (Auto) 0.5, Neutrophils # (Auto ) 5.46, Lymphocytes # (Auto) 1.61, Monocytes # (Auto) 0.83, Eosinophils # (Auto ) 0.30, Basophils # (Auto) 0.04 01/27/18 13:08 Test 01/27/18 13:08 01/27/18 13:23 White Blood Count 8.32 K/uL (4.8-10.8) Red Blood Count 3.60 M/uL (4.7-6.1) Hemoglobin 10.0 g/dL (14.0-18.0) Hematocrit 30.1 % (42-52) Mean Corpuscular Volume 83.6 fL (80-100) Mean Corpuscular Hemoglobin 27.8 pg (25-34) Mean Corpuscular Hemoglobin Concent 33.2 g/dl (32-36) Platelet Count 244 K/uL (130-400) Mean Platelet Volume 8.8 fL (7.4-10.4) Neutrophils (%) (Auto) 65.5 % Lymphocytes (%) (Auto) 19.4 % Monocytes (%) (Auto) 10.0 % Eosinophils (%) (Auto) 3.6 % Basophils (%) (Auto) 0.5 % Neutrophils # (Auto) 5.46 K/uL (1.4-6.5) Lymphocytes # (Auto) 1.61 K/uL (1.2-3.4) Monocytes # (Auto) 0.83 K/uL (0.11-0.59) Eosinophils # (Auto) 0.30 K/uL (0-0.5) Basophils # (Auto) 0.04 K/uL (0-0.2) RDW Standard Deviation 43.3 fL (36.4-46.3) RDW Coefficient of Variation 14.3 % (11.5-14.5) Immature Granulocyte % (Auto) 1.0 % Immature Granulocyte # (Auto) 0.08 K/uL (0.00-0.02) Prothrombin Time 10.1 SECONDS (9.0-12.0) Prothromb Time International Ratio 1.0 (0.9-1.1) Activated Partial Thromboplast Time 25.8 SECONDS (21.0-31.0) Partial Thromboplastin Ratio 1.0 Est Creatinine Clear Calc Drug Dose 57.7 ml/min Estimated GFR () 70.3 Estimated GFR (Non- 60.6 BUN/Creatinine Ratio 21.5 (10-20) Calcium Level 9.1 mg/dl (8.5-10.1) Total Bilirubin 0.3 mg/dl (0.2-1) Aspartate Amino Transf (AST/SGOT) 22 U/L (15-37) Alanine Aminotransferase (ALT/SGPT) 18 U/L (12-78) Alkaline Phosphatase 87 U/L (45-117) Total Creatine Kinase 61 U/L (39-308) Creatine Kinase MB 1.1 ng/ml (0.5-3.6) Creatine Kinase MB Ratio 1.8 (0-3.0) Troponin I < 0.015 ng/ml (0-0.045) Total Protein 7.0 gm/dl (6.4-8.2) Albumin 3.5 gm/dl (3.4-5.0) Globulin 3.5 gm/dl (2.5-4.0) Albumin/Globulin Ratio 1.0 (0.9-2) Bedside Hemoglobin 9.2 g/dl (14.0-18.0) Bedside Hematocrit 27 % (42-52) Bedside Sodium 136 mEq/L (135-144) Bedside Potassium 5.0 mEq/L (3.3-5.0) Bedside Chloride 98 mEq/L (101-112) Bedside Total CO2 31 mEq/l (24-31) Anion Gap 13.0 mmol/L (16-25) Bedside Blood Urea Nitrogen 34 mg/dl (7-18) Bedside Creatinine 1.2 mg/dl (0.6-1.3) Bedside Glucose (other) 95 mg/dl (70-99) Bedside Ionized Calcium (Arabella) 1.12 mmol/l (1.12-1.32) Laboratory results per my review. Medications Administered Medications (Trade) Dose Ordered Sig/Alok Route Start Time Stop Time Status Last Admin Dose Admin Pantoprazole Sodium 40 mg/ Syringe 10 ml @ 5 mls/min NOW ONCE IV 01/27/18 13:15 01/27/18 13:16 DC 01/27/18 13:31 5 MLS/MIN Famotidine (Pepcid 20mg Iv Push) 20 mg ONE STAT IV 01/27/18 13:06 01/27/18 13:07 DC 01/27/18 13:31 20 MG ECG Per My Interpretation Indication: abdominal pain Rate (beats per minute): 86 Rhythm: other (Atrial paced. ) Findings: PVC (frequent), other (No acute ST segment abnormalities.) Comparison ECG Date: 03/15/16 Change: Atrial pacing is new. ED Course 1304: The patient was evaluated in room A3. A complete history and physical examination were performed. 1306: Ordered Pepcid 20 mg IV. 1315: Ordered Pantoprazole Sodium 40 mg/Syringe 10 mL @ 5 mL/min IV. 1330: Upon reevaluation, the patient is resting comfortably. I discussed results and treatment plan with him. verbalizes agreement and understanding. I spoke with Aj LEWIS of the [facility] [place] Hospitalist Service. The patient will be evaluated for further management and care. Medical Decision Differential diagnosis: Etiologies such as diverticulosis, AVM, coagulopathy, colitis, inflammatory bowel disease, malignancy, Caitlyn-Gallego tear, esophagitis, peptic ulcer disease , variceal bleed, gastritis, epistaxis, fissure, hemorrhoids, as well as others were entertained. Nursing notes reviewed. Additional history is obtained from the patient's fdc documentation. The patient is a 77-year-old male who presented to the emergency department for signs of upper GI bleeding. The patient was found to have anemia on outpatient laboratory testing. His stool was melanotic. The patient was treated with IV Protonix in the emergency department. I discussed his case with the on-call [facility] hospitalist group. They have agreed to evaluate the patient in the emergency department for further management and disposition. The patient's hemoglobin had dropped compared to his previous laboratory testing. Medication Reconcilliation Current Medication List: was personally reviewed by me Blood Pressure Screening Patient's blood pressure: Elevated blood pressure Blood pressure disposition: Elevated BP felt to be situational Consults Time Called: 1331 Consulting Physician: Aj LEWIS - [facility] [place] Hospitalist Returned Call: [phone] I discussed the patient's case with Aj LEWIS. The patient will be evaluated for further management. Impression Primary Impression: Upper GI bleeding Additional Impression: Anemia Scribe Attestation The scribe's documentation has been prepared under my direction and personally reviewed by me in its entirety. I confirm that the note above accurately reflects all work, treatment, procedures, and medical decision making performed by me. Departure Information Dispostion Being Evaluated By Hospitalist Referrals [facility] (PCP) Problem Qualifiers Additional Impression: Anemia Anemia type: unspecified type Qualified Codes: D64.9 - Anemia, unspecified
[2018-01-27] MEDS ORDERED: POTA10TA PO (13:52)
[2018-01-27] MEDS ORDERED: DONE5TAB14 PO (13:52)
[2018-01-27] MEDS ORDERED: FURO40TA3 PO (13:52)
[2018-01-27] MEDS ORDERED: THIA100T11 PO (13:52)
[2018-01-27 14:00] LABS: ISTAT CREATININE 1.2 mg/dl (0.6-1.3); ISTAT IONIZED CALCIUM 1.12 mmol/l (1.12-1.32)
[2018-01-27] MEDS ORDERED: ACETAMINOPHEN 325 MG TAB PO PRN (14:30)
[2018-01-27] MEDS ORDERED: OPTIRAY 320 IV PRN (14:45)
--- NOTE | 2018-01-27 14:55 | History and Physical ---
History & Physical Date & Time of Service: Jan 27, 2018 at 13:55 Chief Complaint: Gi Assessment Primary Care Physician: Jaquelin Luke [place] History of Present Illness Source: patient, clinic records, hospital records Mr. Simon came to the ED because staff at the [facility] felt he was a bit more confused and he has a lower left abdominal pain. He was also found to have dark tarry stools and a two gram drop in his hgb. He has been eating and drinking ok and has had no nausea or vomiting. He does feel a bit weak. He is appropriate in his conversation and oriented to person place and event however he thought it was November which he attributes to "living a slow life". His is bedside , [place] so is not sure about the melena but does say that he has been experiencing a general slow decline in mentation over the past couple of months. ROS Constitutional: no chills, aches, sweats or fever Respiratory: no sob,cough, sputum, or wheezing Cardiac: no chest pain, palpitations, edema, orthopnea or lightheadedness GI: see HPI : no dysuria or hesitancy Extremities: no joint pain or weakness Skin: no rash All other systems reviewed and negative Past Medical/Surgical History Medical Problems: (1) Benign hypertension (2) Bladder dysfunction (3) Constipation (4) Dehydration (5) Dehydration (6) Heart disease (7) Hyperlipidemia (8) Hypothyroidism (9) Kidney stone (10) Left shoulder pain (11) Left shoulder pain (12) Nausea (13) Right inguinal hernia (14) Vomiting Surgical Problems: (1) History of knee replacement Family History Heart disease Hypertension Kidney disease Kidney stones non contributory Social History Smoking Status: Never Smoker Marital Status: Occupational Status: retired Immunizations History of Influenza Vaccine: Yes History of Tetanus Vaccine?: Unknown History of Pneumococcal: Yes History of Hepatitis B Vaccine: Yes Allergies Coded Allergies: No Known Allergies (Unverified , 02/06/17) Home Medications Scheduled Aspirin (Aspirin Ec), 81 MG PO HS Cholecalciferol (Vitamin D3), 1 CAP PO QAM Docusate Sodium (Colace), 1 CAP PO QPM Donepezil Hydrochloride (Aricept), 5 MG PO DAILY Furosemide (Lasix), 40 MG PO DAILY Levothyroxine Sodium (Levothyroxine Sodium), 125 MCG PO QAM Multiple Vitamins W/ Minerals (Ocuvite Lutein), 1 CAP PO QAM Multivitamin (Multivitamin), 1 TAB PO QPM Polyethylene Glycol 3350 (Miralax), 17 GM PO QAM Potassium Chloride (K-Tabs), 10 MEQ PO DAILY Senna/Docusate Sod (Senokot S), 1 TAB PO BID Thiamine Hcl (Vitamin B-1), 100 MG PO DAILY Physical Exam Vital Signs Date Time Temp Pulse Resp B/P (MAP) Pulse Ox O2 Delivery O2 Flow Rate FiO2 01/27/18 13:17 36.8 73 18 143/65 98 Room Air 01/27/18 13:11 94 Room Air 01/27/18 13:06 87 General: no distress Eyes: normal inspection, PERLL Respiratory: chest non tender, clear to auscultation, normal breath sounds, no respiratory distress, no accessory muscle use Cardiac: regular rate and rhythm, no rub or gallop, no murmur, no edema, no jvd GI/: active bowel sounds, no abd pain or tenderness, soft, non distended Extremities: normal range of motion, normal strength, non tender Neuro/Psych: alert and oriented to person, place and event but not time, stony facies, normal mood Skin: normal color, dry Diagnostics Laboratory Results Results Past 24 Hours Test 01/27/18 13:08 Range/Units White Blood Count 8.32 4.8-10.8 K/uL Red Blood Count 3.60 4.7-6.1 M/uL Hemoglobin 10.0 14.0-18.0 g/dL Hematocrit 30.1 42-52 % Mean Corpuscular Volume 83.6 80-100 fL Mean Corpuscular Hemoglobin 27.8 25-34 pg Mean Corpuscular Hemoglobin Concent 33.2 32-36 g/dl Platelet Count 244 130-400 K/uL Mean Platelet Volume 8.8 7.4-10.4 fL Neutrophils (%) (Auto) 65.5 % Lymphocytes (%) (Auto) 19.4 % Monocytes (%) (Auto) 10.0 % Eosinophils (%) (Auto) 3.6 % Basophils (%) (Auto) 0.5 % Neutrophils # (Auto) 5.46 1.4-6.5 K/uL Lymphocytes # (Auto) 1.61 1.2-3.4 K/uL Monocytes # (Auto) 0.83 0.11-0.59 K/uL Eosinophils # (Auto) 0.30 0-0.5 K/uL Basophils # (Auto) 0.04 0-0.2 K/uL RDW Standard Deviation 43.3 36.4-46.3 fL RDW Coefficient of Variation 14.3 11.5-14.5 % Immature Granulocyte % (Auto) 1.0 % Immature Granulocyte # (Auto) 0.08 0.00-0.02 K/uL Prothrombin Time 10.1 9.0-12.0 SECONDS Prothromb Time International Ratio 1.0 0.9-1.1 Activated Partial Thromboplast Time 25.8 21.0-31.0 SECONDS Partial Thromboplastin Ratio 1.0 Sodium Level 137 136-145 mmol/L Potassium Level 4.0 3.5-5.1 mmol/L Chloride Level 100 98-107 mmol/L Carbon Dioxide Level 29 21-32 mmol/L Anion Gap 7.0 3-11 mmol/L Blood Urea Nitrogen 25 7-18 mg/dl Creatinine 1.15 0.60-1.40 mg/dl Est Creatinine Clear Calc Drug Dose 57.7 ml/min Estimated GFR () 70.3 Estimated GFR (Non- 60.6 BUN/Creatinine Ratio 21.5 10-20 Random Glucose 94 70-99 mg/dl Calcium Level 9.1 8.5-10.1 mg/dl Total Bilirubin 0.3 0.2-1 mg/dl Aspartate Amino Transf (AST/SGOT) 22 15-37 U/L Alanine Aminotransferase (ALT/SGPT) 18 12-78 U/L Alkaline Phosphatase 87 45-117 U/L Total Creatine Kinase 61 39-308 U/L Creatine Kinase MB 1.1 0.5-3.6 ng/ml Creatine Kinase MB Ratio 1.8 0-3.0 Troponin I < 0.015 0-0.045 ng/ml Total Protein 7.0 6.4-8.2 gm/dl Albumin 3.5 3.4-5.0 gm/dl Globulin 3.5 2.5-4.0 gm/dl Albumin/Globulin Ratio 1.0 0.9-2 Diagnostic Radiology CHEST ONE VIEW PORTABLE CLINICAL HISTORY: Respiratory distress COMPARISON STUDY: No previous studies for comparison. FINDINGS: The heart is enlarged. There is aortic tortuosity/ectasia. There is a left subclavian dual-chamber central venous pacemaker. There is no failure. There is no focal pulmonary consolidation. There are no pleural effusions. Arthritic changes are present within the shoulders.[ IMPRESSION: No active disease in the chest. Electronically signed by: Sandoval Finney M.D. 01/27/2018 1:39 PM EKG Paced rhythm with PVCs Impression Assessment and Plan Mr. Simon is a 77 year old man here for GI bleed GI Bleed - admit telemetry - consult GI - Repeat hgb in four hours - if continuing to trend down, will order serial H & Hs - Given the elevated BUN and dark tarry stools, seems likely that this is an upper GI bleed so will order IV protonix push bid. However, patient is complaining of left lower quadrant pain so will order CT abd pelvis with contrast to assess for diverticulitis though I think this is less likely given that he is afebrile with normal white count and no manpreet blood in stools reported. - hold aspirin - gentle IV hydration, hold furosemide for now. Parkinsons/dementia/depression - continue donepezil - Cymbalta started a week and a half ago was discontinued [facility] over concerns it was contributing to change in mental status Hypothyroidism - continue home levothyroxine GERD - IV protonix push bid DVT proph - SCDs, chemoprophylaxis held d/t GI bleed Full code per patient BNEJAMIN LEWIS Physician Supervision Note: I interviewed and examined the patient. Discussed with Erin LEWIS and agree with findings and plan as documented in the note. Any exceptions or clarifications are listed here: None 77 M with history of parkinsons disease presents with melena and anemia, some non discript abdominal pain vitals reviewed abdomen is with hyperactive bowel sounds, soft diffusely minorly tender Melena and anemia, concern for GIB, Ct of abdomen reviewed personally , shows some sigmoid inflammation and increased stool load, will add cahtartic, and follow serial hgb levels while on IV protonix Documented By: Parrish Denton Advanced Directives Existing Advance Directive: Yes Existing Living Will: Yes Existing Power of Security Trainer: No Existing Health Care Proxy: No Resuscitation Status full code VTE Prophylaxis Will order VTE Prophylaxis: Yes Social Service Consult Lives in Retirement
--- NOTE | 2018-01-27 15:45 | Gastrointestinal Consultation ---
Gastrointestinal Consultation Date of Consultation: Jan 27, 2018 Attending Physician: Erin Lawson Consulting Physician: Dr. Jon Reason for Consultation: GI bleed History of Present Illness Patient is a 77 year old male patient of Dr. Will, resident of the [facility] at [facility] with a hx of Parkinson's, BPH, Hyperlipidemia, Hypothyroidism, who was brought to the ED with report of melena, a 2 point drop in Hb/Hct, LLQ abdominal pain. On arrival, he is hemodynamically stable. CXR w/o active disease, Hb 10. Though this is down from 12 in December, it appears that his baseline is around 10-11. BUN is 25 or 34 (POC). An OP Hb on 01/16/17 was 12.6 as well. He did not have abdominal imaging but a CT in December suggested severe constipation. He has been on laxatives daily since then. The [facility] records were reviewed with note of one black BM this morning around 7AM. His who is with him believes that he ate breakfast, but no lunch. The pt mentioned LLQ pain when asked. Past Medical/Surgical History Medical Problems: (1) Anemia Status: Acute (2) Constipation Status: Acute (3) Dehydration Status: Acute (4) Dehydration Status: Acute (5) Nausea Status: Acute (6) Right inguinal hernia Status: Acute (7) Upper GI bleeding Status: Acute (8) Vomiting Status: Acute Past Medical History: 1. Parkinson's 2. BPH 3. Heart disease 4. Hypothyroidism 5. Kidney stones 6. Right inguinal hernia Past Surgical History: 1. Knee replacement 2. Most recent colonoscopy for hx of polyps 05/09/[address] Fermin, one 3mm hyperplastic polyp. Diverticulosis was noted on a colonoscopy in 2005. No hx of EGD. Family History Heart disease Hypertension Kidney disease Kidney stones Social History Smoking Status: Never Smoker Marital Status: Housing Status: lives with family Occupation Status: retired Allergies Coded Allergies: No Known Allergies (Unverified , 02/06/17) Current Medications Home Meds and Scripts Medications Dose Route/Sig Max Daily Dose Days Date Category Dose Instructions Aricept (Donepezil Hydrochloride) 5 Mg Tab 5 Mg PO DAILY 01/27/18 Reported Vitamin B-1 (Thiamine HCl) 100 Mg Tab 100 Mg PO DAILY 01/27/18 Reported K-Tabs (Potassium Chloride) 10 Meq Tab 10 Meq PO DAILY 01/27/18 Reported Lasix (Furosemide) 40 Mg Tab 40 Mg PO DAILY 01/27/18 Reported Colace (Docusate Sodium) 100 Mg Cap 1 Cap PO QPM 01/22/17 Reported Senokot S (Senna/Docusate Sodium) 1 Tab Tab 1 Tab PO BID 01/22/17 Reported Miralax (Polyethylene Glycol 3350) 1 Pow Pow 17 Gm PO QAM 01/22/17 Reported WITH FLUID OF CHOICE Ocuvite Lutein (Multiple Vitamins W/ Minerals) 1 Cap Cap 1 Cap PO QAM 01/22/17 Reported Vitamin D3 (Cholecalciferol) 2,000 Unit Cap 1 Cap PO QAM 30 03/15/16 Reported Aspirin Ec (Aspirin) 81 Mg Tab 81 Mg PO HS 06/15/14 Reported Levothyroxine Sodium 125 Mcg Tab 125 Mcg PO QAM 06/15/14 Reported Multivitamin (Multivitamins) Tab 1 Tab PO QPM 06/17/11 Reported Review of Systems Constitutional: + weakness (generally declining in the past month according to OP visit notes from yesterday) Eyes: No worsening of vision ENT: No hearing loss Respiratory: No cough Cardiac: No chest pain Abdomen: + pain (LLQ) Male : No dysuria Neuro: + memory loss (Parkinson's related) Psych: + depression symptoms (hx of depression according to [facility] notes) Endo: + fatigue (increasing) Skin: No rash, No jaundice ROS obtained from patient, and [facility] notes. Physical Exam Date Time Temp Pulse Resp B/P (MAP) Pulse Ox O2 Delivery O2 Flow Rate FiO2 01/27/18 14:32 84 20 118/75 98 Room Air 01/27/18 13:17 36.8 73 18 143/65 98 Room Air 01/27/18 13:11 94 Room Air 01/27/18 13:06 87 General Appearance: no apparent distress Neck: no JVD Respiratory/Chest: lungs clear Cardiovascular: regular rate, rhythm, no JVD, no murmur Abdomen: non tender, soft Extremities: no pedal edema Neurologic/Psych: normal mood/affect, + pertinent finding (oriented to person, place) Skin: normal color Laboratory Results Last 24 Hours Test 01/27/18 13:08 01/27/18 13:23 White Blood Count 8.32 K/uL Red Blood Count 3.60 M/uL Hemoglobin 10.0 g/dL Hematocrit 30.1 % Mean Corpuscular Volume 83.6 fL Mean Corpuscular Hemoglobin 27.8 pg Mean Corpuscular Hemoglobin Concent 33.2 g/dl Platelet Count 244 K/uL Mean Platelet Volume 8.8 fL Neutrophils (%) (Auto) 65.5 % Lymphocytes (%) (Auto) 19.4 % Monocytes (%) (Auto) 10.0 % Eosinophils (%) (Auto) 3.6 % Basophils (%) (Auto) 0.5 % Neutrophils # (Auto) 5.46 K/uL Lymphocytes # (Auto) 1.61 K/uL Monocytes # (Auto) 0.83 K/uL Eosinophils # (Auto) 0.30 K/uL Basophils # (Auto) 0.04 K/uL RDW Standard Deviation 43.3 fL RDW Coefficient of Variation 14.3 % Immature Granulocyte % (Auto) 1.0 % Immature Granulocyte # (Auto) 0.08 K/uL Prothrombin Time 10.1 SECONDS Prothromb Time International Ratio 1.0 Activated Partial Thromboplast Time 25.8 SECONDS Partial Thromboplastin Ratio 1.0 Sodium Level 137 mmol/L Potassium Level 4.0 mmol/L Chloride Level 100 mmol/L Carbon Dioxide Level 29 mmol/L Anion Gap 7.0 mmol/L 13.0 mmol/L Blood Urea Nitrogen 25 mg/dl Creatinine 1.15 mg/dl Est Creatinine Clear Calc Drug Dose 57.7 ml/min Estimated GFR () 70.3 Estimated GFR (Non- 60.6 BUN/Creatinine Ratio 21.5 Random Glucose 94 mg/dl Calcium Level 9.1 mg/dl Total Bilirubin 0.3 mg/dl Aspartate Amino Transf (AST/SGOT) 22 U/L Alanine Aminotransferase (ALT/SGPT) 18 U/L Alkaline Phosphatase 87 U/L Total Creatine Kinase 61 U/L Creatine Kinase MB 1.1 ng/ml Creatine Kinase MB Ratio 1.8 Troponin I < 0.015 ng/ml Total Protein 7.0 gm/dl Albumin 3.5 gm/dl Globulin 3.5 gm/dl Albumin/Globulin Ratio 1.0 Bedside Hemoglobin 9.2 g/dl Bedside Hematocrit 27 % Bedside Sodium 136 mEq/L Bedside Potassium 5.0 mEq/L Bedside Chloride 98 mEq/L Bedside Total CO2 31 mEq/l Bedside Blood Urea Nitrogen 34 mg/dl Bedside Creatinine 1.2 mg/dl Bedside Glucose (other) 95 mg/dl Bedside Ionized Calcium (Arabella) 1.12 mmol/l Impression Patient is a 77 year old male with report of Melena, Hb 10, when recent Hb was 12 as well as a general decline in well being in the past month. UGI bleed is considered. Currently no evidence of a brisk GI bleed. Plan 1. Planning for EGD, tomorrow. 2. Protonix IV. 3. Would keep NPO tonight. 4. Appreciate primary hospitalist management of IV fluids. 5. Will continue to follow closely. I have seen , examined and agree with the plan as outlined by . DEBBIE Morales as above. -exam reveals soft abd -No pain -Melena this am around 730 -No further bleeding -No obvious risk factors for gi bleed -Recent constipation -Discussed case with patient and at bedside. He has stable hemodynamics and no signs of ongoing bleeding. His Hb is declined a bit, however, his baseline appears to be around 11. -Discussed with who is unsure if wants to have procedure performed. Told we would support overnight and then make further recommendations and can discuss need tomorrow barring no acute events. Recs: IV PPI infusion -Type and Cross -NPO after MN -Ok for liquids now -2 large bore IV's -Call with any changes
[2018-01-27 15:50] VITALS: BP 125/76; PULSE 70; TEMP 36.9; O2SAT 100; Ht 170.2 cm; Wt 87.9 kg
[2018-01-27] MEDS: SODIUM CHLORIDE 0.9% 1000ML 1,000 ML IV SCH (15:50)
--- NOTE | 2018-01-27 17:50 | DIAGNOSTIC IMAGING REPORT ---
CT OF THE ABDOMEN AND PELVIS WITH CONTRAST CLINICAL HISTORY: Left lower quadrant abdominal pain. Melena. COMPARISON STUDY: CT of the abdomen and pelvis January 16, 2017. TECHNIQUE: Following IV administration of 116 mL of Optiray-320, axial images of the abdomen and pelvis were obtained from the lung bases to the proximal femurs. Images were reviewed in the axial, sagittal, and coronal planes. IV contrast was administered without complication. A dose lowering technique was utilized adhering to the principles of ALARA. CT DOSE: 1282.29 mGy.cm FINDINGS: Moderate cardiomegaly is noted. There is dilatation of visualized portions of the ascending aorta which is approximately 4.6 cm. There is no pericardial effusion. No pneumatosis, free air or portal venous gas is present. There is no gallbladder. There is apparent mild infiltration within the rama hepatis, extending adjacent to the second portion of the duodenum and gallbladder. Gallbladder is not distended. There are several renal cysts. Small bilateral renal calculi are noted. There is no hydronephrosis. No ureteral calculi identified. There is no evidence for a bowel obstruction. Sensitivity for detection mucosal lesions is diminished. There is a moderate amount of stool within the colon. The appendix is normal. There is no lymphadenopathy. No ascites is present. There are no suspicious osseous lesions. IMPRESSION: 1. Cholelithiasis. Mild infiltration adjacent to the second portion of the duodenum, gallbladder and rama hepatis. This infiltration is nonspecific although may be related to peptic ulcer disease. No free air. Cholecystitis is considered less likely given lack of gallbladder distention. 2. Moderate amount of stool within the colon. Mild sigmoid colon dilatation without evidence for a bowel obstruction. Decreased sensitivity for detection mucosal lesions given CT technique. 3. Bilateral nephrolithiasis. 4. Dilatation of visualized portions of the ascending aorta which measures approximately 4.6 cm. Electronically signed by: Liborio Morrison M.D. 01/27/2018 5:49 PM Dictated Date/Time: 01/27/2018 5:37 PM
[2018-01-27] MEDS: PANTOprazole INJ 40 MG in DEXTROSE 5% 100ML IV SCH ×2 (17:52→22:12)
[2018-01-27 19:13] VITALS: BP 123/64; PULSE 59; TEMP 36.8; O2SAT 96
[2018-01-27 19:14] LABS: HEMATOCRIT 26.4 % (42-52)
[2018-01-27 19:46] VITALS: PULSE 84
[2018-01-27 20:00] VITALS: O2SAT 96
[2018-01-27] MEDS ORDERED: PANTOprazole INJ 40 MG in SYRINGE 0 ML IV SCH (21:00)
[2018-01-27] MEDS ORDERED: MAGNESIUM CITRATE 296 ML/BTL PO ONE (21:00)
[2018-01-27] MEDS: MULTIVITAMIN TAB PO SCH (22:11)
[2018-01-27] MEDS: DOCUSATE SODIUM 100 MG CAP PO SCH (22:11)
[2018-01-27] MEDS: DOCUSATE SODIUM/SENNA 50/8.6MG TAB PO SCH (22:12)
[2018-01-27 23:40] VITALS: BP 108/61; PULSE 61; TEMP 36.7; O2SAT 92
[2018-01-28] VITALS (9 sets, daily range): BP systolic 94–122; BP diastolic 55–63; PULSE 65–74; TEMP 36.5–37.2; O2SAT 92–97
[2018-01-28] MEDS: SODIUM CHLORIDE 0.9% 1000ML 1,000 ML IV SCH ×3 (00:34→19:45)
[2018-01-28] MEDS: PANTOprazole INJ 40 MG in DEXTROSE 5% 100ML IV SCH ×5 (03:17→22:13)
[2018-01-28 06:09] LABS: HEMATOCRIT 26.6 % (42-52); HEMOGLOBIN 8.7 g/dL (14.0-18.0); MEAN CELL VOLUME 83.4 fL (80-100); MEAN CORPUSCULAR HEMOGLOBIN 27.3 pg (25-34); MEAN CORPUSCULAR HGB CONC 32.7 g/dl (32-36); MEAN PLATELET VOLUME 9.2 fL (7.4-10.4); PLATELET COUNT 212 K/uL (130-400); RED CELL DISTRIBUTION WIDTH CV 14.4 % (11.5-14.5); RED CELL DISTRIBUTION WIDTH SD 43.5 fL (36.4-46.3); WHITE BLOOD COUNT 6.37 K/uL (4.8-10.8)
[2018-01-28] MEDS: LEVOTHYROXINE 125 MCG TAB PO SCH (06:14)
[2018-01-28 06:50] LABS: CALCIUM 8.7 mg/dl (8.5-10.1); CREATININE 1.06 mg/dl (0.60-1.40); POTASSIUM 3.5 mmol/L (3.5-5.1)
[2018-01-28] MEDS: CHOLECALCIFEROL 1000 INTER.UNIT TAB PO SCH (08:15)
[2018-01-28] MEDS: CEROVITE ADV FORMULA TAB PO SCH (08:15)
[2018-01-28] MEDS: THIAMINE HCL 100 MG TAB PO SCH (08:16)
[2018-01-28] MEDS: DONEPEZIL HCL 5 MG TAB PO SCH (08:16)
[2018-01-28] MEDS: DOCUSATE SODIUM/SENNA 50/8.6MG TAB PO SCH ×2 (08:16→20:46)
[2018-01-28] MEDS: POLYETHYLENE (MIRALAX) 17 GM PACK PO SCH (08:16)
--- NOTE | 2018-01-28 08:42 | Clinical Documentation Query ---
CLINICAL DOCUMENTATION QUERY 77 year old male who presents to the Emergency Room with complaints of rectal bleeding. Query #1/3 In your clinical opinion is this patient being managed for: (xx ) Acute blood loss anemia in setting of suspected GI Bleed. ( ) Not Agree ( ) Other explanation of clinical findings (Please Explain) ( ) Unable to determine (Please Define) ( ) Need to Discuss The medical record reflects the following clinical findings, treatment, and risk factors. Clinical Indicators: Falling H/H. Hgb 10-8.7, Hct 30.0-26.6, dark, tarry stools. Treatment: serial H/H's, T/C, IVF's, Risk Factors: Age, GI bleed, home ASA therapy Query #2/3 This patient presents with reported AMS that is above baseline. In your clinical opinion is this patient being managed for: ( ) Metabolic encephalopathy (xx ) Not Agree ( ) Other explanation of clinical findings (Please Explain) ( ) Unable to determine (Please Define) ( ) Need to Discuss The medical record reflects the following clinical findings, treatment, and risk factors. Clinical Indicators: Per ED assessment, "Per nursing staff, the patient has a history of Parkinson's/dementia and has some baseline confusion, but is reported to appear more confused than normal. HPI limited secondary to altered mental status." Hgb 10-8.7, Hct 30.0-26.6, Treatment: IVF's, telemetry, Q4hr neuro checks, Risk Factors: Age, Parkinson's dementia, anemia, Query #3/3 Patient is normally maintained on PO Lasix at home. In your clinical opinion is this patient being managed for: ( ) Chronic diastolic (preserved EF) heart failure ( ) Chronic systolic (reduced EF) heart failure ( ) Not Agree ( ) Other explanation of clinical findings (Please Explain) ( ) Unable to determine (Please Define) ( ) Need to Discuss The medical record reflects the following clinical findings, treatment, and risk factors. Clinical Indicators: Home diuretic therapy, Treatment: Telemetry, I/O's, daily weights, gentle IV hydration Risk Factors: Age, CAD Please clarify and document your clinical opinion in the progress notes and discharge summary. Terms such as "probable", "suspected", "likely", "questionable", "possible", or "still to be ruled out" are acceptable. IF IN AGREEMENT, YOU MUST DOCUMENT ABOVE DIAGNOSTIC STATEMENT IN DAILY PROGRESS NOTES AND DISCHARGE SUMMARY. This document is not part of the patient's record. Thank You, Arben Matthews, RN [phone]
--- NOTE | 2018-01-28 09:01 | Hospitalist Progress Note ---
Hospitalist Progress Note Date of Service Jan 28, 2018. (Aj Feng CRNP) Subjective Pt evaluation today including: conversation w/ patient, physical exam, chart review, lab review, review of studies, review of inpatient medication list Pain: currently denies any pain PO Intake: NPO for possible EGD Voiding: no voiding problems Denies any abdominal pain this morning. Patient is confused and is wanting his . Constitutional: No see HPI, No fever, No chills, No sweats, No weight loss, No weakness, No fatigue, No problem reported Respiratory: No see HPI, No cough, No sputum, No wheezing, No shortness of breath, No dyspnea on exertion, No dyspnea at rest, No hemoptysis, No problem reported Cardiovascular: No see HPI, No chest pain, No orthopnea, No PND, No edema, No claudication, No palpitations, No problem reported Abdomen: No see HPI, No pain, No nausea, No vomiting, No diarrhea, No constipation, No GI bleeding, No problem reported Musculoskeletal: No see HPI, No joint pain, No muscle pain, No swelling, No calf pain, No problem reported Male : No see HPI, No dysuria, No urinary frequency, No incontinence, No nocturia more than once/night, No slowing stream, No hematuria, No sexual dysfunction, No problem reported Neurologic: + problem reported (confusion) Skin: No see HPI, No rash, No itch, No new/changing skin lesions, No color change, No bleeding, No problem reported (Aj Feng CRNP) Medications reviewed inpatient medication list (Aj Feng CRNP) Objective Vital Signs Date Time Temp Pulse Resp B/P (MAP) Pulse Ox O2 Delivery O2 Flow Rate FiO2 01/28/18 08:11 36.9 69 18 122/58 (79) 97 01/28/18 04:00 96 Room Air 01/28/18 03:52 36.7 67 17 94/56 (69) 96 Room Air 01/28/18 00:00 92 Room Air 01/27/18 23:40 36.7 61 19 108/61 (77) 92 Room Air 01/27/18 20:00 96 Room Air 01/27/18 19:46 84 01/27/18 19:13 36.8 59 16 123/64 (83) 96 Room Air 01/27/18 15:50 36.9 70 16 125/76 100 Room Air 01/27/18 14:32 84 20 118/75 98 Room Air 01/27/18 13:17 36.8 73 18 143/65 98 Room Air 01/27/18 13:11 94 Room Air 01/27/18 13:06 87 (Aj Feng, DEBBIE) Laboratory Results Last 24 Hours Test 01/27/18 13:08 01/27/18 13:23 01/27/18 18:51 01/28/18 05:00 White Blood Count 8.32 K/uL Red Blood Count 3.60 M/uL Hemoglobin 10.0 g/dL 9.0 g/dL Hematocrit 30.1 % 26.4 % Mean Corpuscular Volume 83.6 fL Mean Corpuscular Hemoglobin 27.8 pg Mean Corpuscular Hemoglobin Concent 33.2 g/dl Platelet Count 244 K/uL Mean Platelet Volume 8.8 fL Neutrophils (%) (Auto) 65.5 % Lymphocytes (%) (Auto) 19.4 % Monocytes (%) (Auto) 10.0 % Eosinophils (%) (Auto) 3.6 % Basophils (%) (Auto) 0.5 % Neutrophils # (Auto) 5.46 K/uL Lymphocytes # (Auto) 1.61 K/uL Monocytes # (Auto) 0.83 K/uL Eosinophils # (Auto) 0.30 K/uL Basophils # (Auto) 0.04 K/uL RDW Standard Deviation 43.3 fL RDW Coefficient of Variation 14.3 % Immature Granulocyte % (Auto) 1.0 % Immature Granulocyte # (Auto) 0.08 K/uL Prothrombin Time 10.1 SECONDS Prothromb Time International Ratio 1.0 Activated Partial Thromboplast Time 25.8 SECONDS Partial Thromboplastin Ratio 1.0 Sodium Level 137 mmol/L Potassium Level 4.0 mmol/L Chloride Level 100 mmol/L Carbon Dioxide Level 29 mmol/L Anion Gap 7.0 mmol/L 13.0 mmol/L Blood Urea Nitrogen 25 mg/dl Creatinine 1.15 mg/dl Est Creatinine Clear Calc Drug Dose 57.7 ml/min Estimated GFR () 70.3 Estimated GFR (Non- 60.6 BUN/Creatinine Ratio 21.5 Random Glucose 94 mg/dl Calcium Level 9.1 mg/dl Total Bilirubin 0.3 mg/dl Aspartate Amino Transf (AST/SGOT) 22 U/L Alanine Aminotransferase (ALT/SGPT) 18 U/L Alkaline Phosphatase 87 U/L Total Creatine Kinase 61 U/L Creatine Kinase MB 1.1 ng/ml Creatine Kinase MB Ratio 1.8 Troponin I < 0.015 ng/ml Total Protein 7.0 gm/dl Albumin 3.5 gm/dl Globulin 3.5 gm/dl Albumin/Globulin Ratio 1.0 Bedside Hemoglobin 9.2 g/dl Bedside Hematocrit 27 % Bedside Sodium 136 mEq/L Bedside Potassium 5.0 mEq/L Bedside Chloride 98 mEq/L Bedside Total CO2 31 mEq/l Bedside Blood Urea Nitrogen 34 mg/dl Bedside Creatinine 1.2 mg/dl Bedside Glucose (other) 95 mg/dl Bedside Ionized Calcium (Arabella) 1.12 mmol/l Urine Color YELLOW Urine Appearance CLEAR Urine pH 8.5 Urine Specific Pierson 1.019 Urine Protein NEG Urine Glucose (UA) NEG Urine Ketones NEG Urine Occult Blood NEG Urine Nitrite NEG Urine Bilirubin NEG Urine Urobilinogen NEG Urine Leukocyte Esterase NEG Urine WBC (Auto) 1-5 /hpf Urine RBC (Auto) 0-4 /hpf Urine Hyaline Casts (Auto) 1-5 /lpf Urine Epithelial Cells (Auto) 10-20 /lpf Urine Bacteria (Auto) NEG Test 01/28/18 05:38 White Blood Count 6.37 K/uL Red Blood Count 3.19 M/uL Hemoglobin 8.7 g/dL Hematocrit 26.6 % Mean Corpuscular Volume 83.4 fL Mean Corpuscular Hemoglobin 27.3 pg Mean Corpuscular Hemoglobin Concent 32.7 g/dl RDW Standard Deviation 43.5 fL RDW Coefficient of Variation 14.4 % Platelet Count 212 K/uL Mean Platelet Volume 9.2 fL Sodium Level 137 mmol/L Potassium Level 3.5 mmol/L Chloride Level 103 mmol/L Carbon Dioxide Level 26 mmol/L Anion Gap 8.0 mmol/L Blood Urea Nitrogen 21 mg/dl Creatinine 1.06 mg/dl Est Creatinine Clear Calc Drug Dose 59.9 ml/min Estimated GFR () 77.5 Estimated GFR (Non- 66.9 BUN/Creatinine Ratio 19.4 Random Glucose 91 mg/dl Calcium Level 8.7 mg/dl Magnesium Level 2.4 mg/dl (Aj Feng ., [employer]) Diagnostic Results CT OF THE ABDOMEN AND PELVIS WITH CONTRAST CLINICAL HISTORY: Left lower quadrant abdominal pain. Melena. COMPARISON STUDY: CT of the abdomen and pelvis January 16, 2017. TECHNIQUE: Following IV administration of 116 mL of Optiray-320, axial images of the abdomen and pelvis were obtained from the lung bases to the proximal femurs. Images were reviewed in the axial, sagittal, and coronal planes. IV contrast was administered without complication. A dose lowering technique was utilized adhering to the principles of ALARA. CT DOSE: 1282.29 mGy.cm FINDINGS: Moderate cardiomegaly is noted. There is dilatation of visualized portions of the ascending aorta which is approximately 4.6 cm. There is no pericardial effusion. No pneumatosis, free air or portal venous gas is present. There is no gallbladder. There is apparent mild infiltration within the rama hepatis, extending adjacent to the second portion of the duodenum and gallbladder. Gallbladder is not distended. There are several renal cysts. Small bilateral renal calculi are noted. There is no hydronephrosis. No ureteral calculi identified. There is no evidence for a bowel obstruction. Sensitivity for detection mucosal lesions is diminished. There is a moderate amount of stool within the colon. The appendix is normal. There is no lymphadenopathy. No ascites is present. There are no suspicious osseous lesions. IMPRESSION: 1. Cholelithiasis. Mild infiltration adjacent to the second portion of the duodenum, gallbladder and rama hepatis. This infiltration is nonspecific although may be related to peptic ulcer disease. No free air. Cholecystitis is considered less likely given lack of gallbladder distention. 2. Moderate amount of stool within the colon. Mild sigmoid colon dilatation without evidence for a bowel obstruction. Decreased sensitivity for detection mucosal lesions given CT technique. 3. Bilateral nephrolithiasis. 4. Dilatation of visualized portions of the ascending aorta which measures approximately 4.6 cm. (Aj Feng ., DEBBIE) Assessment and Plan 1. Acute GI Bleed - likely upper given melena and increased BUN - appreciate GI input - possible EGD today. GI to discuss with . - H/H lower but stable at 8.7/26.6 - continue to monitor H/H - continue pantoprazole IV - CT of abdomen showed some increased stool burden. - hold aspirin 2. Parkinsons/dementia/depression - remains confused - I suspect baseling. -continue donepezil - Cymbalta started a week and a half ago was discontinued at the [facility] over concerns it was contributing to change in mental status 3. Hypothyroidism - continue home levothyroxine 4. DVT proph - SCDs, no anticoag d/t GI bleed 5. POLST is full code. 6. disposition - will await GI input whether EGD or not. Continued [facility] stay due to: other (still NPO for possible procedure later today. Ongoing H/H monitoring) Discharge planning: home with home health (Aj Feng ., DEBBIE) DEBBIE Physician Supervision Note: I interviewed and examined the patient. Discussed with Charles LEWIS and agree with findings and plan as documented in the note. Any exceptions or clarifications are listed here: None Pt is pleasantly confused and slightly agitated, at bedside EGD shows clean based duodenal ulcer vs 36.6 69 18 122/58 car is regular lungs are clear abd is soft and non tender duodenal ulcer on EGD, protonix gtt and follow hgb, pending H pylori testing Documented By: Parrish Denton (Parrish Denton M.D.)
--- NOTE | 2018-01-28 12:46 | Clinical Documentation Query ---
CLINICAL DOCUMENTATION QUERY 77 year old male who presents to the Emergency Room with complaints of rectal bleeding. Query #1/3 In your clinical opinion is this patient being managed for: ( xx) Acute blood loss anemia in setting of suspected GI Bleed. ( ) Not Agree ( ) Other explanation of clinical findings (Please Explain) ( ) Unable to determine (Please Define) ( ) Need to Discuss The medical record reflects the following clinical findings, treatment, and risk factors. Clinical Indicators: Falling H/H. Hgb 10-8.7, Hct 30.0-26.6, dark, tarry stools. Treatment: serial H/H's, T/C, IVF's, Risk Factors: Age, GI bleed, home ASA therapy Query #2/3 This patient presents with reported AMS that is above baseline. In your clinical opinion is this patient being managed for: ( ) Metabolic encephalopathy ( xx ) Not Agree ( ) Other explanation of clinical findings (Please Explain) ( ) Unable to determine (Please Define) ( ) Need to Discuss The medical record reflects the following clinical findings, treatment, and risk factors. Clinical Indicators: Per ED assessment, "Per nursing staff, the patient has a history of Parkinson's/dementia and has some baseline confusion, but is reported to appear more confused than normal. HPI limited secondary to altered mental status." Hgb 10-8.7, Hct 30.0-26.6, Treatment: IVF's, telemetry, Q4hr neuro checks, Risk Factors: Age, Parkinson's dementia, anemia, Query #3/3 Patient is normally maintained on PO Lasix at home. In your clinical opinion is this patient being managed for: ( ) Chronic diastolic (preserved EF) heart failure ( ) Chronic systolic (reduced EF) heart failure ( ) Not Agree ( ) Other explanation of clinical findings (Please Explain) ( ) Unable to determine (Please Define) ( ) Need to Discuss The medical record reflects the following clinical findings, treatment, and risk factors. Clinical Indicators: Home diuretic therapy, Treatment: Telemetry, I/O's, daily weights, gentle IV hydration Risk Factors: Age, CAD Please clarify and document your clinical opinion in the progress notes and discharge summary. Terms such as "probable", "suspected", "likely", "questionable", "possible", or "still to be ruled out" are acceptable. IF IN AGREEMENT, YOU MUST DOCUMENT ABOVE DIAGNOSTIC STATEMENT IN DAILY PROGRESS NOTES AND DISCHARGE SUMMARY. This document is not part of the patient's record. Thank You, Arben Matthews, SHARYN [phone]
[2018-01-28] MEDS ORDERED: HALOPERIDOL LACTATE 5 MG/ML 1 ML VIAL IV STA (12:49)
[2018-01-28] MEDS ORDERED: LIDOCAINE HCL 2% 2 ML VIAL (20MG/ML) ONE ×2 (13:49→15:50)
[2018-01-28] MEDS ORDERED: PROPOFOL IV EMULSION 10 MG/ML 20 ML VIAL IV ONE ×2 (13:49→15:50)
[2018-01-28] MEDS: CARBIDOPA/LEVODOPA 25/100MG TAB PO SCH ×2 (14:00→20:46)
[2018-01-28] MEDS ORDERED: MIDAZOLAM HCL 1 MG/ML 2ML VIAL ONE (15:49)
[2018-01-28] MEDS ORDERED: ONDANSETRON INJ 2 MG/ML 2 ML VIAL ONE (15:50)
--- NOTE | 2018-01-28 15:55 | Progress Note ---
Progress Note Date of Service Jan 28, 2018. Progress Note Bridge note: Stable overnight, no further bleeding. Plan for EGD today after discussion with who wanted to proceed
[2018-01-28] MEDS ORDERED: EpHEDrine SULFATE INJ 50 MG/ML AMP IV PRN (16:00)
[2018-01-28] MEDS ORDERED: ATROPINE SULFATE 0.1 MG/ML 5ML SYR IV PRN (16:00)
--- NOTE | 2018-01-28 16:11 | GI REPORT ---
Procedure Date: 01/28/2018 3:55 PM Procedure: Upper GI endoscopy Indications: Melena Medicines: Monitored Anesthesia Care Complications: No immediate complications. Estimated blood loss: None. Estimated Blood Loss: Estimated blood loss: none. Procedure: Pre-Anesthesia Assessment: - Pre-Anesthesia Assessment: - Prior to the procedure, a History and Physical was performed, and patient medications, allergies and sensitivities were reviewed. The patient's tolerance of previous anesthesia was reviewed. Please see [email or web address] for complete details. - The risks and benefits of the procedure and the sedation options and risks were discussed with the patient. All questions were answered and informed consent was obtained. - Patient identification and proposed procedure were verified prior to the procedure by the physician and the nurse. The procedure was verified in the pre-procedure area in the procedure room. After obtaining informed consent, the endoscope was passed carefully and meticuously under direct vision and only advanced when the lumen was clearly identified, C02 insuflation was utilized throughout the entirity of the procedure. Throughout the procedure, the patient's blood pressure, pulse, and oxygen saturations were monitored continuously. After obtaining informed consent, the endoscope was passed under direct vision. Throughout the procedure, the patient's blood pressure, pulse, and oxygen saturations were monitored continuously. The scope was introduced through the mouth, and advanced to the second part of duodenum. The upper GI endoscopy was accomplished without difficulty. The patient tolerated the procedure well. Findings: The examined esophagus was normal. Diffuse mild inflammation characterized by erythema was found in the gastric body and in the gastric antrum. Biopsies were taken with a cold forceps for Helicobacter pylori testing. One non-bleeding cratered duodenal ulcer with a clean ulcer base (Ovidio Class III) was found in the duodenal bulb. The lesion was 10 mm in largest dimension. No Active bleeding or evidence of recent bleeding. Impression: - Normal esophagus. - Gastritis. Biopsied. - One non-bleeding duodenal ulcer with a clean ulcer base (Ovidio Class III). Recommendation: - Await pathology results. - [facility]. - If H. Pylori is positive then will require treatment. - Use Prilosec (omeprazole) 40 mg PO BID for at least 2 months, then can transition to once daily indefinately. - Ok for clears overnight - Continue supportive care Praveen Jon MD 01/28/2018 4:10:23 PM This report has been signed electronically. Note Initiated On: 01/28/2018 3:55 PM I attest to the content of the Intraoperative Record and orders documented therein, exceptions below
[2018-01-28] MEDS ORDERED: EpHEDrine SULFATE 50MG/5ML SYR ONE (16:13)
--- NOTE | 2018-01-28 16:25 | Anesthesiology Progress Note ---
Anesthesia Post Op Note Date & Time Jan 28, 2018 at 16:24 Vital Signs Pain Intensity: 0 Vital Signs Past 12 Hours Date Time Temp Pulse Resp B/P (MAP) Pulse Ox O2 Delivery O2 Flow Rate FiO2 01/28/18 16:22 72 16 105/53 (70) 99 Room Air 01/28/18 16:08 60 16 97/53 (68) 100 Room Air 01/28/18 15:48 36.8 79 16 104/65 (78) 98 Room Air 01/28/18 12:00 Room Air 01/28/18 11:48 36.9 74 16 111/61 (78) 97 01/28/18 08:11 36.9 69 18 122/58 (79) 97 01/28/18 08:00 Room Air Notes Mental Status: alert / awake / arousable, participated in evaluation Pt Amnestic to Procedure: Yes Nausea / Vomiting: adequately controlled Pain: adequately controlled Airway Patency, RR, SpO2: stable & adequate BP & HR: stable & adequate Hydration State: stable & adequate Anesthetic Complications: no major complications apparent
[2018-01-28] MEDS ORDERED: HALOPERIDOL LACTATE 5 MG/ML 1 ML VIAL IV PRN (19:00)
[2018-01-28] MEDS: DOCUSATE SODIUM 100 MG CAP PO SCH (20:46)
[2018-01-28] MEDS: MULTIVITAMIN TAB PO SCH (20:47)
[2018-01-29] VITALS (9 sets, daily range): BP systolic 82–118; BP diastolic 54–65; PULSE 64–77; TEMP 36.3–37.5; O2SAT 94–97
[2018-01-29] MEDS: PANTOprazole INJ 40 MG in DEXTROSE 5% 100ML IV SCH ×3 (03:10→13:25)
[2018-01-29 05:56] LABS: HEMATOCRIT 24.5 % (42-52); HEMOGLOBIN 8.1 g/dL (14.0-18.0); MEAN CELL VOLUME 84.5 fL (80-100); MEAN CORPUSCULAR HEMOGLOBIN 27.9 pg (25-34); MEAN CORPUSCULAR HGB CONC 33.1 g/dl (32-36); MEAN PLATELET VOLUME 8.8 fL (7.4-10.4); PLATELET COUNT 159 K/uL (130-400); RED CELL DISTRIBUTION WIDTH CV 14.6 % (11.5-14.5); RED CELL DISTRIBUTION WIDTH SD 45.1 fL (36.4-46.3); WHITE BLOOD COUNT 5.45 K/uL (4.8-10.8)
[2018-01-29] MEDS: SODIUM CHLORIDE 0.9% 1000ML 1,000 ML IV SCH ×2 (06:02→15:02)
[2018-01-29] MEDS: LEVOTHYROXINE 125 MCG TAB PO SCH (06:02)
[2018-01-29 06:34] LABS: CALCIUM 8.3 mg/dl (8.5-10.1); CREATININE 1.16 mg/dl (0.60-1.40); POTASSIUM 3.8 mmol/L (3.5-5.1)
[2018-01-29] MEDS: THIAMINE HCL 100 MG TAB PO SCH (09:05)
[2018-01-29] MEDS: CEROVITE ADV FORMULA TAB PO SCH (09:05)
[2018-01-29] MEDS: DOCUSATE SODIUM/SENNA 50/8.6MG TAB PO SCH ×2 (09:05→21:09)
[2018-01-29] MEDS: POLYETHYLENE (MIRALAX) 17 GM PACK PO SCH (09:05)
[2018-01-29] MEDS: DONEPEZIL HCL 5 MG TAB PO SCH (09:05)
[2018-01-29] MEDS: CARBIDOPA/LEVODOPA 25/100MG TAB PO SCH ×3 (09:06→21:10)
[2018-01-29] MEDS: CHOLECALCIFEROL 1000 INTER.UNIT TAB PO SCH (09:06)
--- NOTE | 2018-01-29 09:19 | Hospitalist Progress Note ---
Hospitalist Progress Note Date of Service Jan 29, 2018. (Aj Feng CRNP) Subjective Pt evaluation today including: conversation w/ patient, conversation w/ family , physical exam, chart review, lab review, review of studies, review of inpatient medication list Pain: denies any chest or abdominal pain PO Intake: tolerating PO Voiding: lane catheter in place no dark stools over night - appears comfortable - no chest/abd pain. no nausea, tolerating PO (Aj Feng CRNP) Medications reviewed (Aj Feng CRNP) Objective Vital Signs Date Time Temp Pulse Resp B/P (MAP) Pulse Ox O2 Delivery O2 Flow Rate FiO2 01/29/18 08:07 36.5 72 18 99/61 (74) 96 01/29/18 04:39 37.0 64 16 93/54 (67) 96 Room Air 01/29/18 04:00 Room Air 01/29/18 00:01 Room Air 01/28/18 23:42 36.8 65 18 100/63 (75) 97 Room Air 01/28/18 20:00 94 Room Air 01/28/18 19:46 36.5 68 18 103/60 (74) 94 Room Air 01/28/18 16:54 37.2 72 18 112/55 (74) 96 Room Air 01/28/18 16:49 Room Air 01/28/18 16:35 73 18 113/55 (74) 96 Room Air 01/28/18 16:22 72 16 105/53 (70) 99 Room Air 01/28/18 16:08 60 16 97/53 (68) 100 Room Air 01/28/18 15:48 36.8 79 16 104/65 (78) 98 Room Air 01/28/18 12:00 Room Air 01/28/18 11:48 36.9 74 16 111/61 (78) 97 (Aj Feng CRNP) Physical Exam General Appearance: WD/WN, no apparent distress Eyes: normal inspection ENT: hearing grossly normal, pharynx normal Neck: supple, no JVD Respiratory/Chest: chest non-tender, lungs clear, normal breath sounds, no respiratory distress Cardiovascular: regular rate, rhythm, no edema, no murmur Abdomen: non tender, soft, no organomegaly, + abnormal bowel sounds ( hyperactive) Extremities: + pedal edema (trace) Neurologic/Psychiatric: no motor/sensory deficits, + motor weakness (general weakness - does not ambulate), + disoriented (alert to person, sometimes place) (Aj Feng ., DEBBIE) Laboratory Results Last 24 Hours Test 01/29/18 05:42 White Blood Count 5.45 K/uL Red Blood Count 2.90 M/uL Hemoglobin 8.1 g/dL Hematocrit 24.5 % Mean Corpuscular Volume 84.5 fL Mean Corpuscular Hemoglobin 27.9 pg Mean Corpuscular Hemoglobin Concent 33.1 g/dl RDW Standard Deviation 45.1 fL RDW Coefficient of Variation 14.6 % Platelet Count 159 K/uL Mean Platelet Volume 8.8 fL Sodium Level 139 mmol/L Potassium Level 3.8 mmol/L Chloride Level 107 mmol/L Carbon Dioxide Level 26 mmol/L Anion Gap 6.0 mmol/L Blood Urea Nitrogen 19 mg/dl Creatinine 1.16 mg/dl Est Creatinine Clear Calc Drug Dose 56.6 ml/min Estimated GFR () 69.5 Estimated GFR (Non- 60.0 BUN/Creatinine Ratio 16.0 Random Glucose 94 mg/dl Calcium Level 8.3 mg/dl (Aj Feng ., DEBBIE) Diagnostic Results EGD Impression: - Normal esophagus. - Gastritis. Biopsied. - One non-bleeding duodenal ulcer with a clean ulcer base (Ovidio Class III). Recommendation: - Await pathology results. - [facility] patient to [facility] for [facility] care. - If H. Pylori is positive then will require treatment. - Use Prilosec (omeprazole) 40 mg PO BID for at least 2 months, then can transition to once daily indefinately. - Ok for clears overnight - Continue supportive care (Aj Feng, DEBBIE) Assessment and Plan 1. Acute GI Bleed - likely upper given melena and increased BUN - appreciate GI input - EGD showed one non-bleeding ulcer with clean base. Gastritis which was biopsied. H.Pylori Pending - GI recommends omeprazole 40mg BID for at least 2 months, then transition to once daily indefinately - H/H lower but stable at 8.7 to 8.1 - continue pantoprazole IV - will speak with GI to see how long to continue IV - - hold aspirin 2. Parkinsons/dementia/depression - remains confused - I suspect baseline - PRN Haldol. -continue donepezil - Cymbalta outpatient caused increased confusion 3. Hypothyroidism - continue home levothyroxine 4. DVT proph - SCDs, no anticoag d/t GI bleed 5. POLST is full code. 6. disposition - discuss with GI - may need one more day to monitor H/H stabilization. Continued [facility] stay due to: multiple IV medications needed, other (h/h monitoring) Discharge planning: custodial facility (from [facility]) (Aj Feng ., DEBBIE) DEBBIE Physician Supervision Note: I interviewed and examined the patient. Discussed with Aj LEWIS and agree with findings and plan as documented in the note. Any exceptions or clarifications are listed here: None This patient's continues to have fairly significant intermittent confusion consistent with his baseline history of dementia however this is likely exacerbated by his medical condition and change in his environment. Patient is having relatively stable hemoglobin after finding a clean based duodenal ulcer gastroenterology has no agreed to change to oral Protonix and if his hemoglobin remains stable over the next 1 day the patient likely return to his custodial facility vitals are stable, lungs clear abdomen is soft and nontender Acute blood loss anemia from clean based duodenal ulcer following his anemia with serial hemoglobins continue proton pump inhibitors and the need for some intravenous haloperidol to control patient's agitated delirium Documented By: Parrish Denton (Parrish Denton M.D.)
[2018-01-29] MEDS ORDERED: POLYETHYLENE (MIRALAX) 17 GM PACK PO ONE (11:00)
--- NOTE | 2018-01-29 15:50 | Gastroenterology Progress Note ---
Progress Note Date of Service: Jan 29, 2018 Subjective Pt evaluation today including: conversation w/ patient, physical exam, chart review, lab review, review of studies, review of inpatient medication list Mr. Simon is a 77 yr old male admitted with melena, anemia. EGD yesterday with non bleeding duodenal ulcers. Today, Hb 8.1, stable from yesterday and down from admission on 01/27. He passed one moderate size black loose BM this morning. He has not required a blood transfusion. at the bedside. Review of Systems Constitutional: + problem reported (mild confusion, consistent with hx of Parkinson's Dementia), No fever ENT: + hearing loss Respiratory: No cough Cardiac: No chest pain Abdomen: + diarrhea (loose stools with administration of laxatives here), + constipation (hx of), No pain, No nausea, No vomiting Male : No dysuria Neuro: + memory loss (chronic) Psych: No depression symptoms Heme: No abnormal bleeding/bruising Endo: No fatigue Skin: No rash Medications Current Inpatient Medications Medications (Trade) Dose Ordered Sig/Alok Route Start Time Stop Time Status Last Admin Dose Admin Acetaminophen (Tylenol Tab) 650 mg Q4H PRN PO 01/27/18 14:30 02/26/18 14:29 Docusate Sodium (coLACE CAP) 100 mg QPM PO 01/27/18 21:00 02/26/18 20:59 01/28/18 20:46 100 MG Donepezil HCl (Aricept Tab) 5 mg DAILY PO 01/28/18 09:00 02/27/18 08:59 01/29/18 09:05 5 MG Levothyroxine Sodium (Synthroid Tab) 125 mcg DAILYBB PO 01/28/18 06:00 02/27/18 06:59 01/29/18 06:02 125 MCG Multivitamins (Multivitamin Tab) 1 tab QPM PO 01/27/18 21:00 02/26/18 20:59 01/28/18 20:47 1 TAB Senna/Docusate Sodium (Senokot S Tab) 1 tab BID PO 01/27/18 21:00 02/26/18 20:59 01/29/18 09:05 1 TAB Thiamine HCl (Vitamin B-1 Tab) 100 mg DAILY PO 01/28/18 09:00 02/27/18 08:59 01/29/18 09:05 100 MG Cholecalciferol (Vitamin D Tab) 2,000 inter.unit QAM PO 01/28/18 09:00 02/27/18 08:59 01/29/18 09:06 2,000 INTER.UNIT Multivitamins/ Minerals (Multivitamin W/ Minerals Tab) 1 tab QAM PO 01/28/18 09:00 02/27/18 08:59 01/29/18 09:05 1 TAB Polyethylene (Miralax Powder Packet) 17 gm QAM PO 01/28/18 09:00 02/27/18 08:59 01/29/18 09:05 17 GM Ioversol (Optiray 320) 125 ml UD PRN IV 01/27/18 14:45 01/31/18 14:44 Carbidopa/Levodopa (Sinemet 25/ 100MG Tab) 1 tab TID PO 01/28/18 14:00 02/27/18 13:59 01/29/18 13:26 1 TAB Haloperidol Lactate (Haldol Inj) 2.5 mg Q4H PRN IV 01/28/18 19:00 02/27/18 18:59 01/28/18 20:56 2.5 MG Pantoprazole Sodium (Protonix Tab) 40 mg BID PO 01/29/18 21:00 02/28/18 20:59 Objective Vital Signs Date Time Temp Pulse Resp B/P (MAP) Pulse Ox O2 Delivery O2 Flow Rate FiO2 01/29/18 12:00 Room Air 01/29/18 11:57 36.5 73 16 95/60 (72) 96 01/29/18 08:07 36.5 72 18 99/61 (74) 96 01/29/18 08:00 Room Air 01/29/18 04:39 37.0 64 16 93/54 (67) 96 Room Air 01/29/18 04:00 Room Air 01/29/18 00:01 Room Air 01/28/18 23:42 36.8 65 18 100/63 (75) 97 Room Air 01/28/18 20:00 94 Room Air 01/28/18 19:46 36.5 68 18 103/60 (74) 94 Room Air 01/28/18 16:54 37.2 72 18 112/55 (74) 96 Room Air 01/28/18 16:49 Room Air 01/28/18 16:35 73 18 113/55 (74) 96 Room Air 01/28/18 16:22 72 16 105/53 (70) 99 Room Air 01/28/18 16:08 60 16 97/53 (68) 100 Room Air 01/28/18 15:48 36.8 79 16 104/65 (78) 98 Room Air Physical Exam General Appearance: no apparent distress Neck: supple, thyroid normal, no JVD Respiratory/Chest: lungs clear Cardiovascular: regular rate, rhythm, no JVD, no murmur Abdomen: non tender, soft Extremities: no pedal edema Neurologic/Psych: alert, + pertinent finding (mild aggitation at times; easily reorients) Skin: no jaundice Laboratory Results Last 24 Hours Test 01/29/18 05:42 White Blood Count 5.45 K/uL Red Blood Count 2.90 M/uL Hemoglobin 8.1 g/dL Hematocrit 24.5 % Mean Corpuscular Volume 84.5 fL Mean Corpuscular Hemoglobin 27.9 pg Mean Corpuscular Hemoglobin Concent 33.1 g/dl RDW Standard Deviation 45.1 fL RDW Coefficient of Variation 14.6 % Platelet Count 159 K/uL Mean Platelet Volume 8.8 fL Sodium Level 139 mmol/L Potassium Level 3.8 mmol/L Chloride Level 107 mmol/L Carbon Dioxide Level 26 mmol/L Anion Gap 6.0 mmol/L Blood Urea Nitrogen 19 mg/dl Creatinine 1.16 mg/dl Est Creatinine Clear Calc Drug Dose 56.6 ml/min Estimated GFR () 69.5 Estimated GFR (Non- 60.0 BUN/Creatinine Ratio 16.0 Random Glucose 94 mg/dl Calcium Level 8.3 mg/dl Assessment and Plan Mr. Simon is a 77 yr old male with melena secondary to non bleeding duodenal ulcers. Plan: 1. BID PPI x 2 months then daily. 2. Will f/u on pathology when available. 3. Regular diet. 4. No plan for repeat EGD. 5. GI will sign off. I have seen , examined and agree with the plan as outlined by DEBBIE Gordon as above. -Exam reveals soft abd -No signs of bleeding -Ok with Blood transfusion if drops below 8
[2018-01-29] MEDS: DOCUSATE SODIUM 100 MG CAP PO SCH (21:08)
[2018-01-29] MEDS: MULTIVITAMIN TAB PO SCH (21:09)
[2018-01-29] MEDS: PANTOprazole SOD 40 MG TAB PO SCH (21:09)
[2018-01-30 03:54] VITALS: BP 104/68; PULSE 62; TEMP 36.3; O2SAT 94
[2018-01-30 06:23] LABS: HEMATOCRIT 25.2 % (42-52); HEMOGLOBIN 8.4 g/dL (14.0-18.0); MEAN CELL VOLUME 82.9 fL (80-100); MEAN CORPUSCULAR HEMOGLOBIN 27.6 pg (25-34); MEAN CORPUSCULAR HGB CONC 33.3 g/dl (32-36); PLATELET COUNT 183 K/uL (130-400); RED CELL DISTRIBUTION WIDTH CV 14.4 % (11.5-14.5); WHITE BLOOD COUNT 5.56 K/uL (4.8-10.8)
[2018-01-30] MEDS: LEVOTHYROXINE 125 MCG TAB PO SCH (06:35)
[2018-01-30 06:47] LABS: CALCIUM 8.6 mg/dl (8.5-10.1); CREATININE 1.06 mg/dl (0.60-1.40); POTASSIUM 3.5 mmol/L (3.5-5.1)
[2018-01-30] MEDS ORDERED: OMEP20TA PO ×2 (07:56→08:13)
[2018-01-30] MEDS: DONEPEZIL HCL 5 MG TAB PO SCH (07:57)
[2018-01-30] MEDS: POLYETHYLENE (MIRALAX) 17 GM PACK PO SCH (07:57)
[2018-01-30] MEDS: PANTOprazole SOD 40 MG TAB PO SCH (07:58)
[2018-01-30] MEDS: DOCUSATE SODIUM/SENNA 50/8.6MG TAB PO SCH (07:58)
[2018-01-30] MEDS: CARBIDOPA/LEVODOPA 25/100MG TAB PO SCH ×2 (07:58→12:13)
[2018-01-30] MEDS: CEROVITE ADV FORMULA TAB PO SCH (07:58)
[2018-01-30] MEDS: CHOLECALCIFEROL 1000 INTER.UNIT TAB PO SCH (07:59)
[2018-01-30] MEDS: THIAMINE HCL 100 MG TAB PO SCH (07:59)
[2018-01-30 08:00] VITALS: O2SAT 94
[2018-01-30 08:03] VITALS: BP 110/52; PULSE 69; TEMP 37; O2SAT 96
--- NOTE | 2018-01-30 08:18 | Discharge Summary ---
Discharge Summary Date of Service Jan 30, 2018. Discharge Summary Admission Date: Jan 27, 2018 at 14:40 Discharge Disposition: assisted facility Principal Diagnosis: acute GI Bleed from PUD Problems/Secondary Diagnoses: parkinson's Immunizations: Have You Had Influenza Vaccine: Yes History of Tetanus Vaccine?: Unknown History of Pneumococcal: Yes History of Hepatitis B Vaccine: Yes Procedures: EGD - nonbleeding ulcer Consultations: GI Medication Reconciliation New Medications: Omeprazole (Omeprazole) 20 Mg Tab 2 TAB PO BID for 30 Days, #120 TAB 1 Refill Continued Medications: Aspirin (Aspirin Ec) 81 Mg Tab 81 MG PO HS hold aspirin for one week then resume Cholecalciferol (Vitamin D3) 2,000 Unit Cap 1 CAP PO QAM for 30 Days, #30 CAP 3 Refills Docusate Sodium (Colace) 100 Mg Cap 1 CAP PO QPM, CAP Donepezil Hydrochloride (Aricept) 5 Mg Tab 5 MG PO DAILY Furosemide (Lasix) 40 Mg Tab 40 MG PO DAILY Levothyroxine Sodium (Levothyroxine Sodium) 125 Mcg Tab 125 MCG PO QAM Multiple Vitamins W/ Minerals (Ocuvite Lutein) 1 Cap Cap 1 CAP PO QAM Multivitamin (Multivitamin) Tab 1 TAB PO QPM, 0 Refills Polyethylene Glycol 3350 (Miralax) 1 Pow Pow 17 GM PO QAM, #527 GM WITH FLUID OF CHOICE Potassium Chloride (K-Tabs) 10 Meq Tab 10 MEQ PO DAILY Senna/Docusate Sod (Senokot S) 1 Tab Tab 1 TAB PO BID, TAB Thiamine Hcl (Vitamin B-1) 100 Mg Tab 100 MG PO DAILY Discharge Exam Review of Systems: Constitutional: No fever, No chills, No sweats, No weight loss, No weakness , No fatigue, No problem reported Respiratory: No cough, No sputum, No wheezing, No shortness of breath, No dyspnea on exertion, No dyspnea at rest, No hemoptysis, No problem reported Cardiovascular: No chest pain, No orthopnea, No PND, No edema, No claudication, No palpitations, No problem reported Abdomen: No pain, No nausea, No vomiting, No diarrhea, No constipation, No GI bleeding, No problem reported Musculoskeletal: No joint pain, No muscle pain, No swelling, No calf pain, No problem reported Hospital Course 1. Acute GI Bleed - likely upper given melena and increased BUN - appreciate GI input - EGD showed one non-bleeding ulcer with clean base. Gastritis which was biopsied. H.Pylori Pending - GI recommends omeprazole 40mg BID for at least 2 months, then transition to once daily indefinitely - H/H stable at 8.4 - continue to monitor outpatient - hold aspirin one week 2. Parkinsons/dementia/depression - remains confused - I suspect baseline - PRN Haldol. -continue donepezil - Cymbalta outpatient caused increased confusion 3. Hypothyroidism - continue home levothyroxine 4. DVT proph - SCDs, no anticoag d/t GI bleed 5. POLST is full code. 6. disposition - back to [facility] today [facility] Physician Supervision Note: I interviewed and examined the patient. Discussed with Aj LEWIS and agree with findings and plan as documented in the note. Any exceptions or clarifications are listed here: None This patient's continues to have intermittent confusion consistent with his baseline history of dementia however this is likely exacerbated by his medical condition and change in his environment. Patient remains with stable hemoglobin after finding a clean based duodenal ulcer, change to oral Protonix and return to his [facility] facility vitals are stable, lungs clear abdomen is soft and nontender Acute blood loss anemia from clean based duodenal ulcer following his anemia with serial hemoglobins continue proton pump inhibitors Documented By: Parrish Denton (Parrish Denton M.D.) Total Time Spent: Greater than 30 minutes This includes examination of the patient, discharge planning, medication reconciliation, and communication with other providers. Discharge Instructions Please refer to the electronic Patient Visit Report (Discharge Instructions) for additional information.
--- NOTE | 2018-01-30 08:20 | Discharge Instructions ---
Discharge Instructions Date of Service Jan 30, 2018. Admission Reason for Admission: Gastrointestinal Hemorrhage W/ Melena, Upper Gi Bl Discharge Discharge Diagnosis / Problem: peptic ulcer disease with acute GI bleed Discharge Goals Goal(s): Decrease discomfort, Prevent Disease Progression Activity Recommendations Activity Limitations: resume your previous activity patient is nonambulatory . Current Hospital Diet Patient's current hospital diet: Regular Diet Discharge Diet Recommended Diet: Regular Diet Pending Studies Studies pending at discharge: no Medical Emergencies . Who to Call and When: Medical Emergencies: If at any time you feel your situation is an emergency, please call 911 immediately. . Non-Emergent Contact Non-Emergency issues call your: Primary Care Provider (will be followed at the [facility] by their medical coding instructor) Call Non-Emergent contact if: you have a fever, your pain is not controlled, you have any medication questions . . "Provider Documentation" section prepared by Aj Feng. . Outpatient Therapist Recommendations Outpatient Therapist Recommendations: omeprazole 40mg bid for 45 days then once daily
[2018-01-30 11:37] VITALS: BP 90/61; PULSE 74; TEMP 36.9; O2SAT 95
[2018-01-30 12:01] VITALS: BP 90/61; PULSE 74; TEMP 36.9; O2SAT 95
== END 2018-01-30 12:43 | DRG 378 ==
LOC: EDBD 12:56 → C.EDA 12:57 → C.2E 14:40 → UNDOADMIN 14:40 → C.2E 14:41 → ENRESERV 14:51
PROVIDERS: ADMIT Internal Medicine; ATTEND Internal Medicine
PROC: 0DB68ZX Excision of Stomach, Via Natural or Artificial Opening Endoscopic, Diagnostic (ICD-10-PCS; principal; 2018-01-28 16:00)
DX: K26.4 Chronic or unspecified duodenal ulcer with hemorrhage (principal); D62 Acute posthemorrhagic anemia; G31.83 Neurocognitive disorder with Lewy bodies; F02.81 Dementia in other diseases classified elsewhere, unspecified severity, with behavioral disturbance; E78.5 Hyperlipidemia, unspecified; E03.9 Hypothyroidism, unspecified; K21.9 Gastro-esophageal reflux disease without esophagitis; F32.9 Major depressive disorder, single episode, unspecified; Z79.82 Long term (current) use of aspirin; Z79.899 Other long term (current) drug therapy

== ENCOUNTER → 2018-01-27 | Outpatient (CLI) | payer OTHER, BC ==
[~2018-01-27] MED LIST changes: +DONE5TAB14 PO; +FURO40TA3 PO; +OMEP20TA PO; +POTA10TA PO; +THIA100T11 PO
[2018-01-27 10:19] LABS: BASO % 0.5 %; BASO ABS # 0.03 K/uL (0-0.2); EOS ABS # 0.24 K/uL (0-0.5); IG# 0.06 K/uL (0.00-0.02); LYMPH % 19.3 %; LYMPH ABS # 1.15 K/uL (1.2-3.4); MEAN CORPUSCULAR HGB CONC 33.3 g/dl (32-36); MEAN PLATELET VOLUME 9.8 fL (7.4-10.4); MONO % 9.1 %; MONO ABS # 0.54 K/uL (0.11-0.59); NEUT % 66.1 %; NEUT ABS # 3.93 K/uL (1.4-6.5); PLATELET COUNT 240 K/uL (130-400); RED CELL DISTRIBUTION WIDTH CV 14.3 % (11.5-14.5); WHITE BLOOD COUNT 5.95 K/uL (4.8-10.8)
[2018-01-27 10:32] LABS: BLOOD UREA NITROGEN 22 mg/dl (7-18); CALCIUM 9.1 mg/dl (8.5-10.1); CARBON DIOXIDE 28 mmol/L (21-32); CREATININE 1.09 mg/dl (0.60-1.40); GLUCOSE 101 mg/dl (70-99); POTASSIUM 3.5 mmol/L (3.5-5.1); SODIUM 136 mmol/L (136-145)
== END | disposition home or self-care (01) ==
LOC: C.LABVPSUA 09:27
PROVIDERS: ATTEND Internal Medicine Critical Care Medicine
DX: I11.9 Hypertensive heart disease without heart failure (principal); K92.1 Melena

== ENCOUNTER → 2018-02-04 | Outpatient (CLI) | payer OTHER, BC ==
[~2018-02-04] MED LIST changes: -CARB25TA PO; -DONE10TA12 PO; +DONE5TAB14 PO; -DTRSR/10 PO; +FURO40TA3 PO; -MAGNESIUM CITRATE 296 ML/BTL PO ONE; -MELO-84 PO; -OMEP20CA9 PO; +OMEP20TA PO; -ONDA4TAB46 PO; +POTA10TA PO; -SIMV-150 PO; +THIA100T11 PO
[2018-02-04 09:44] LABS: BASO % 0.5 %; BASO ABS # 0.03 K/uL (0-0.2); EOS % 4.9 %; EOS ABS # 0.28 K/uL (0-0.5); HEMATOCRIT 29.3 % (42-52); HEMOGLOBIN 9.5 g/dL (14.0-18.0); IG# 0.05 K/uL (0.00-0.02); LYMPH % 29.2 %; LYMPH ABS # 1.66 K/uL (1.2-3.4); MEAN CELL VOLUME 84.2 fL (80-100); MEAN CORPUSCULAR HEMOGLOBIN 27.3 pg (25-34); MEAN CORPUSCULAR HGB CONC 32.4 g/dl (32-36); MEAN PLATELET VOLUME 9.7 fL (7.4-10.4); MONO % 7.9 %; MONO ABS # 0.45 K/uL (0.11-0.59); NEUT % 56.6 %; NEUT ABS # 3.21 K/uL (1.4-6.5); PLATELET COUNT 271 K/uL (130-400); RED CELL DISTRIBUTION WIDTH CV 14.4 % (11.5-14.5); WHITE BLOOD COUNT 5.68 K/uL (4.8-10.8)
== END | disposition home or self-care (01) ==
LOC: C.LABVPSUA 09:07
PROVIDERS: ATTEND Internal Medicine Critical Care Medicine
DX: K92.2 Gastrointestinal hemorrhage, unspecified (principal)